=== PATIENT | female | born 1980 | race Caucasian/White ===

== ENCOUNTER 2016-08-27 12:11 | Emergency (ER) | payer OTHER ==
--- NOTE | 2016-08-27 12:38 | EDM.PDOC ---
ED HPI Trauma - General Chief Complaint: Lower Extremity Injury/Pain Stated Complaint: RT ANKLE HURTS Time Seen by Provider: 08/27/16 12:21 Source: Reports: Patient History Limitations: Reports: No limitations - History of Present Illness INITIAL COMMENTS - FREE TEXT/NARRATIVE: History of present illness: [] Patient stepped off a treadmill wrong yesterday and has right ankle pain. She is ambulatory but with pain she denies any other injuries. Review of systems: As per history of present illness and below otherwise all systems reviewed and negative. Past medical history: As per history of present illness and as reviewed below otherwise noncontributory. Surgical history: As per history of present illness and as reviewed below otherwise noncontributory. Social history: No reported history of drug or alcohol abuse. Family history: As per history of present illness and as reviewed below otherwise noncontributory. Physical exam: General: Well developed, well nourished in NAD HEENT: Atraumatic, normocephalic, pupils reactive, negative for conjunctival pallor or scleral icterus, mucous membranes moist, throat clear, neck supple, nontender, trachea midline. Lungs: Clear to auscultation, breath sounds equal bilaterally, chest nontender. Heart: S1S2, regular, negative for clicks, rubs, or JVD. Abdomen: Soft, nondistended, nontender. Negative for masses or hepatosplenomegaly. Negative for costovertebral tenderness. Pelvis: Stable nontender. Genitourinary: Deferred. Rectal: Deferred. Extremities: Atraumatic, tenderness to palpation over the medial malleolus of the right ankle there is no edema or swelling. negative for cords or calf pain. Neurovascular unremarkable. Neuro: Awake, alert, oriented. Cranial nerves II through XII unremarkable. Cerebellum unremarkable. Motor and sensory unremarkable throughout. Exam nonfocal. Diagnostics: [] X-ray negative for fracture Therapeutics: [] Impression: [] Ankle sprain Plan: [] Josué wrap ice elevation followup PMD Definitive disposition and diagnosis as appropriate pending reevaluation and review of above. Allergies/ADRs: Allergies aspirin Adverse Reaction (Verified 08/27/16 13:14) Nausea and Vomiting Home Medications: Ambulatory Orders . 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 Neurological History: Reports: None Psychiatric History: Reports: None Endocrine/Metabolic History: Reports: None Oncologic (Cancer) History: Reports: None Dermatologic History: Reports: None - Infectious Disease History Infectious Disease History: Reports: Chicken pox - Past Surgical History Head Surgeries/Procedures: Reports: None Female Surgical History: Reports: None Endocrine Surgical History: Reports: None Social & Family History - Family History Family Medical History: Unobtainable - Tobacco Use Smoking Status *Q: Never Smoker Second Hand Smoke Exposure: Yes - Alcohol Use Days Per Week of Alcohol Use: 0 - Recreational Drug Use Recreational Drug Use: No - Living Situation & Occupation Living situation: Reports: (With 3 children) Occupation: employed ([employer]) Review of Systems - Review of Systems Review Of Systems: See Below (See history of present illness) Trauma Exam - Physical Exam Exam: See Below (See history of present illness) Course - Vital Signs Last Recorded V/S: Last Vital Signs Temp 36.8 C 08/27/16 13:15 Pulse 70 08/27/16 13:15 Resp 18 08/27/16 13:15 BP 118/64 08/27/16 13:15 Pulse Ox 99 08/27/16 13:15 - Orders/Labs/Meds Orders: Active Orders 24 hr Category Date Time Status Orthopedic Device Education [RC] Click To Edit Care 08/27/16 13:46 Active Departure - Departure Time of Disposition: 13:47 Disposition: Home, Self-Care 01 Condition: good Clinical Impression: Right ankle sprain Qualifiers: Encounter type: initial encounter Involved ligament of ankle: other ligament Qualified Code(s): S93.491A - Sprain of other ligament of right ankle, initial encounter Forms: ED Department Discharge Additional Instructions: The following information is given to patients seen in the emergency department who are being discharged to home. This information is to outline your options for follow-up care. We provide all patients seen in our emergency department with a follow-up referral. The need for follow-up, as well as the timing and circumstances, are variable depending upon the specifics of your emergency department visit. If you don't have a primary care physician on staff, we will provide you with a referral. We always advise you to contact your personal physician following an emergency department visit to inform them of the circumstance of the visit and for follow-up with them and/or the need for any referrals to a consulting specialist. The emergency department will also refer you to a specialist when appropriate. This referral assures that you have the opportunity for follow-up care with a specialist. All of these measure are taken in an effort to provide you with optimal care, which includes your follow-up. Under all circumstances we always encourage you to contact your private physician who remains a resource for coordinating your care. When calling for follow-up care, please make the office aware that this follow-up is from your recent emergency room visit. If for any reason you are refused follow-up, please contact the [facility] Emergency Department at and asked to speak to the emergency department charge nurse. Ibuprofen, ice, elevate, follow up PMD [facility] [address] [place] [id number] - My Orders Last 24 Hours: My Active Orders 08/27/16 13:46 Orthopedic Device Education [RC] Click To Edit - Assessment/Plan Last 24 Hours: My Active Orders 08/27/16 13:46 Orthopedic Device Education [RC] Click To Edit
[2016-08-27 13:18] VITALS: BP 118/64
--- NOTE | 2016-08-27 13:43 | CR ---
EXAMINATION: Right ankle HISTORY: Pain COMPARISON: Radiographs dated 07/20/2008 TECHNIQUE: 3 views FINDINGS/IMPRESSION: There is no acute osseous abnormality, dislocation, or fracture identified. Bon e mineralization and joint spaces appear normal. No soft tissue swelling or joint effusion.
== END 2016-08-27 13:58 | disposition home or self-care (01) ==
LOC: MW.ED 12:11
DX: S93.491A Sprain of other ligament of right ankle, initial encounter (principal); X58.XXXA Exposure to other specified factors, initial encounter
CPT/HCPCS: 73610-26-RT; 73610-RT; 99282; 99283

== ENCOUNTER 2017-02-23 12:48 | Emergency (ER) | payer BC ==
[2017-02-23] MEDS ORDERED: Ketorolac 60 MG/2 ML SDV IM ONE (13:06)
--- NOTE | 2017-02-23 13:06 | EDM.PDOC ---
ED HPI GENERAL MEDICAL PROBLEM - General Chief Complaint: Back Pain or Injury Stated Complaint: BACK PAIN Time Seen by Provider: 02/23/17 13:01 Source of Information: Reports: Patient History Limitations: Reports: No Limitations - History of Present Illness INITIAL COMMENTS - FREE TEXT/NARRATIVE: HISTORY AND PHYSICAL: []36-year-old female with lower back pain radiating to her upper thigh on the right History of Present Illness: []Patient lifted her child who weighs 45 pounds and instantly had the pain Review of Systems: As per history of present illness and below otherwise all systems reviewed and negative. Past medical history: As per history of present illness and as reviewed below otherwise noncontributory. Surgical history: As per history of present illness and as reviewed below otherwise noncontributory. Social history: No reported history of drug or alcohol abuse. Family history: As per history of present illness and as reviewed below otherwise noncontributory. Physical exam: Alert and oriented female answering in full question shows it is sitting position she is able to raise her right leg chair with some difficulty. Left leg raise is better. HEENT: Atraumatic, normocehpalic, pupils reactive, negative for conjunctival pallor or scleral icterus, mucous membranes moist, throat clear, neck supple, nontender, trachea midline. Lungs: Clear to auscultation, breath sounds equal bilaterally, chest non tender. Heart: S1S2, regular, negative for clicks, rubs, or JVD. Abdomen: Soft, nondistended, nontender. Negative for masses or hepatossplenmegaly. Negative for costovertebral tenderness. Pelvis: Stable nontender. Genitourinary: Deferred. Rectal: Deferred Extremities: Atraumatic, negative for cords or calf pain. Neurovascular unremarkable. Neuro: Awake, alert, oriented. Cranial nerves II through XII unremarkable. Cerebellum unremarkable. Motor and sensory unremarkable throughout. Exam nonfocal. Diagnostics: [] Therapeutics: [Toradol] Impression: [Right-sided low back strain] Plan: []Steroids Muscle relaxant Diclofenac Follow up with your primary care Definitive disposition and diagnosis as appropriate pending reevaluation and review of above. Right Lower Back Pain Score (Numeric/FACES): 7 - Related Data Allergies Allergy/AdvReac Type Severity Reaction Status Date / Time aspirin AdvReac Nausea and Verified 02/23/17 12:59 Vomiting Home Meds: Home Meds Cyclobenzaprine [Flexeril] 10 mg PO TID #21 tablet 02/23/17 [Rx] Diclofenac Sodium [IJD: Diclofenac Sodium] 75 mg PO .TWICE DAILY W MEALS #20 tab.ec 02/23/17 [Rx] Prednisone [IJD: predniSONE] 20 mg PO WITHBREAKFAST #10 tab 02/23/17 [Rx] Past Medical History - Past Health History Medical/Surgical History: Denies Medical/Surgical History HEENT History: Reports: None Cardiovascular History: Reports: None Respiratory History: Reports: Other (See Below) Other Respiratory History: activity induced asthma Gastrointestinal History: Reports: None Genitourinary History: Reports: None 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 Neurological History: Reports: None Psychiatric History: Reports: None Endocrine/Metabolic History: Reports: None Oncologic (Cancer) History: Reports: None Dermatologic History: Reports: None - Infectious Disease History Infectious Disease History: Reports: Chicken Pox - Past Surgical History Head Surgeries/Procedures: Reports: None Female Surgical History: Reports: None Endocrine Surgical History: Reports: None Social & Family History - Family History Family Medical History: Unobtainable - Tobacco Use Smoking Status *Q: Never Smoker Second Hand Smoke Exposure: Yes - Alcohol Use Days Per Week of Alcohol Use: 0 - Recreational Drug Use Recreational Drug Use: No - Living Situation & Occupation Living situation: Reports: Occupation: Employed ED ROS GENERAL - Review of Systems Review Of Systems: ROS reveals no pertinent complaints other than HPI. ED EXAM,LOWER BACK PAIN/INJURY - Physical Exam Exam: See Below (See dictation) Course - Vital Signs Last Recorded V/S: Last Vital Signs Temp 36.6 C 02/23/17 12:55 Pulse 99 02/23/17 12:55 Resp 20 02/23/17 12:55 BP 151/66 H 02/23/17 12:55 Pulse Ox 99 02/23/17 12:55 Departure - Departure Time of Disposition: 13:03 Disposition: Home, Self-Care 01 Condition: Good Clinical Impression: Low back strain Qualifiers: Encounter type: initial encounter Qualified Code(s): S39.012A - Strain of muscle, fascia and tendon of lower back, initial encounter - Discharge Information Prescriptions: Cyclobenzaprine [Flexeril] 10 mg PO TID #21 tablet Diclofenac Sodium [IJD: Diclofenac Sodium] 75 mg PO .TWICE DAILY W MEALS #20 tab.ec Prednisone [IJD: predniSONE] 20 mg PO WITHBREAKFAST #10 tab Instructions: Muscle Strain, [id number] Referrals: PCP,None [Primary Care Provider] - Additional Instructions: The following information is given to patients seen in the emergency department who are being discharged to home. This information is to outline your options for follow-up care. We provide all patients seen in our emergency department with a follow-up referral. The need for follow-up, as well as the timing and circumstances, are variable depending upon the specifics of your emergency department visit. If you don't have a primary care physician on staff, we will provide you with a referral. We always advise you to contact your personal physician following an emergency department visit to inform them of the circumstance of the visit and for follow-up with them and/or the need for any referrals to a consulting specialist. The emergency department will also refer you to a specialist when appropriate. This referral assures that you have the opportunity for followup care with a specialist. All of these measure are taken in an effort to provide you with optimal care, which includes your followup. Under all circumstances we always encourage you to contact your private physician who remains a resource for coordinating your care. When calling for followup care, please make the office aware that this follow-up is from your recent emergency room visit. If for any reason you are refused follow-up, please contact the [facility] emergency department at and asked to speak to the emergency department charge nurse. You have been found to have a low back strain on the right that is radiating down part of your leg. Your vertebrae are not tender to palpation. Prescriptions have been sent to your pharmacy Diclofenac is a pain medication that you take twice daily Prednisone is a steroid to help reduce the inflammation Flexeril is for muscle spasms do not take this while you are working or driving Follow up with your primary care provider in one week Few are not improved by that time he may be requested to have x-rays or further imaging Follow-up after that time with physical therapy may be beneficial
[2017-02-23 13:38] VITALS: BP 113/74
== END 2017-02-23 13:30 | disposition home or self-care (01) ==
LOC: MW.ED 12:48
DX: S39.012A Strain of muscle, fascia and tendon of lower back, initial encounter (principal); Z88.6 Allergy status to analgesic agent; Z79.899 Other long term (current) drug therapy; X50.0XXA Overexertion from strenuous movement or load, initial encounter
CPT/HCPCS: 96372; 99283; J1885

== ENCOUNTER 2017-03-04 19:59 | Emergency (ER) | payer BC, OTHER ==
[2017-03-04] MEDS ORDERED: Sodium Chloride 0.9% 1,000 ML IV ONE (20:04)
[2017-03-04] MEDS ORDERED: LORazepam 2 MG/ML MDV IVPUSH ONE ×2 (20:04→20:40)
[2017-03-04] MEDS ORDERED: Ketorolac 30 MG/ML SDV IVPUSH ONE (20:04)
--- NOTE | 2017-03-04 20:13 | EDM.PDOC ---
ED HPI GENERAL MEDICAL PROBLEM - General Chief Complaint: Chest Pain Stated Complaint: UNKNOWN Time Seen by Provider: 03/04/17 20:06 Source of Information: Reports: Patient, EMS History Limitations: Reports: No Limitations - History of Present Illness INITIAL COMMENTS - FREE TEXT/NARRATIVE: History of present illness: [36-year-old female comes in via EMS secondary to chest pain. EMS indicated on- site the patient appeared to be having an anxiety attack she was hyperventilating in indicating she couldn't breathe.] Review of systems: As per history of present illness and below otherwise all systems reviewed and negative. Past medical history: As per history of present illness and as reviewed below otherwise noncontributory. Surgical history: As per history of present illness and as reviewed below otherwise noncontributory. Social history: No reported history of drug or alcohol abuse. Family history: As per history of present illness and as reviewed below otherwise noncontributory. Physical exam: HEENT: Atraumatic, normocephalic, pupils reactive, negative for conjunctival pallor or scleral icterus, mucous membranes moist, throat clear, neck supple, nontender, trachea midline. Lungs: Clear to auscultation, breath sounds equal bilaterally, chest nontender. Heart: S1S2, regular, negative for clicks, rubs, or JVD. Abdomen: Soft, nondistended, nontender. Negative for masses or hepatosplenomegaly. Negative for costovertebral tenderness. Pelvis: Stable nontender. Genitourinary: Deferred. Rectal: Deferred. Extremities: Atraumatic, negative for cords or calf pain. Neurovascular unremarkable. Neuro: Awake, alert, oriented. Cranial nerves II through XII unremarkable. Cerebellum unremarkable. Motor and sensory unremarkable throughout. Exam nonfocal. After patient received Ativan and significant other was at the bedside and repeated coaching on slowing respirations she became calmer and no longer complained of tingling in her hands and feet or circumoral tingling. Diagnostics: [CBC, CMP, troponin, chest x-ray, EKG] Therapeutics: [2 mg of IV Ativan, 1 L IV fluid normal saline, Toradol, Zofran, potassium 40 mEq by mouth] Impression: [#1 anxiety #2 hyperventilation #3 hypokalemia] Plan: [Follow-up with PCP] Definitive disposition and diagnosis as appropriate pending reevaluation and review of above. Middle Chest Pain Score (Numeric/FACES): 5 - Related Data Allergies Allergy/AdvReac Type Severity Reaction Status Date / Time aspirin AdvReac Nausea and Verified 03/04/17 20:08 Vomiting Home Meds: Home Meds . 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 Neurological History: Reports: None Psychiatric History: Reports: None Endocrine/Metabolic History: Reports: None Oncologic (Cancer) History: Reports: None Dermatologic History: Reports: None - Infectious Disease History Infectious Disease History: Reports: Chicken Pox - Past Surgical History Head Surgeries/Procedures: Reports: None Female Surgical History: Reports: None Endocrine Surgical History: Reports: None Social & Family History - Family History Family Medical History: Unobtainable - Tobacco Use Smoking Status *Q: Never Smoker Second Hand Smoke Exposure: Yes - Caffeine Use Caffeine Use: Reports: Soda - Alcohol Use Days Per Week of Alcohol Use: 0 - Recreational Drug Use Recreational Drug Use: No - Living Situation & Occupation Living situation: Reports: Occupation: Employed ED ROS GENERAL - Review of Systems Review Of Systems: See Below (See history of present illness) ED EXAM, GENERAL - Physical Exam Exam: See Below (See history of present illness) Course - Vital Signs Last Recorded V/S: Last Vital Signs Temp 36.6 C 03/04/17 20:03 Pulse 111 H 03/04/17 20:03 Resp 18 03/04/17 20:03 BP 131/85 03/04/17 20:03 Pulse Ox 100 03/04/17 20:03 - Orders/Labs/Meds Orders: Active Orders 24 hr Category Date Time Status EKG Documentation Completion [RC] STAT Care 03/04/17 20:04 Active Chest 1V Frontal [CR] Stat Exams 03/04/17 20:04 Ordered Labs: Laboratory Tests 03/04/17 03/04/17 03/04/17 Range/Units 20:20 20:20 20:50 WBC 8.56 (4.0-11.0) K/uL RBC 4.37 (4.30-5.90) M/uL Hgb 13.3 (12.0-16.0) g/dL Hct 39.2 (36.0-46.0) % MCV 89.7 (80.0-98.0) fL MCH 30.4 (27.0-32.0) pg MCHC 33.9 (31.0-37.0) g/dL RDW Std Deviation 40.8 (28.0-62.0) fl RDW Coeff of [place] 13 (11.0-15.0) % Plt Count 328 (150-400) K/uL MPV 9.90 (7.40-12.00) fL Neut % (Auto) 61.8 (48.0-80.0) % Lymph % (Auto) 28.0 (16.0-40.0) % [place] % (Auto) 8.4 (0.0-15.0) % Eos % (Auto) 1.3 (0.0-7.0) % Baso % (Auto) 0.5 (0.0-1.5) % Neut # (Auto) 5.3 (1.4-5.7) K/uL Lymph # (Auto) 2.4 (0.6-2.4) K/uL [place] # (Auto) 0.7 (0.0-0.8) K/uL Eos # (Auto) 0.1 (0.0-0.7) K/uL Baso # (Auto) 0.0 (0.0-0.1) K/uL Nucleated RBC % 0.0 /100WBC Nucleated RBCs # 0 K/uL Sodium 139 (136-146) mmol/L Potassium 2.8 L (3.5-5.1) mmol/L Chloride 101 (98-110) mmol/L Carbon Dioxide 24 (21-31) mmol/L BUN 8 (6.0-23.0) mg/dL Creatinine 1.1 (0.6-1.5) mg/dL Est Cr Clr Drug Dosing 59.05 mL/min Estimated GFR (MDRD) 56.5 ml/min Glucose 98 (60-110) mg/dL Calcium 9.1 (8.8-10.8) mg/dL Total Bilirubin 0.4 (0.1-1.5) mg/dL AST 16 (5-40) IU/L ALT 12 (8-54) IU/L Alkaline Phosphatase 61 (40-150) Troponin I < 0.10 (0.0-0.29) NG/ML Total Protein 7.5 (6.0-8.0) g/dL Albumin 4.1 (3.5-5.0) g/dL Globulin 3.4 (2.0-3.5) g/dL Albumin/Globulin Ratio 1.2 L (1.3-2.8) Amylase 39 (10-90) U/L Lipase 46 (7-80) U/L Urine Color Urine Appearance Urine pH (5.0-8.0) Ur Specific [place] (1.001-1.035) Urine Protein (NEGATIVE) mg/dL Urine Glucose (UA) (NEGATIVE) mg/dL Urine Ketones (NEGATIVE) mg/dL Urine Occult Blood (NEGATIVE) Urine Nitrite (NEGATIVE) Urine Bilirubin (NEGATIVE) Urine Urobilinogen (<2.0) EU/dL Ur Leukocyte Esterase (NEGATIVE) Urine RBC (0-2/HPF) Urine WBC (0-5/HPF) Ur Epithelial Cells (NONE-FEW) Urine Bacteria (NEGATIVE) Urine HCG, Qual NEGATIVE (NEGATIVE) 03/04/17 Range/Units 20:50 WBC (4.0-11.0) K/uL RBC (4.30-5.90) M/uL Hgb (12.0-16.0) g/dL Hct (36.0-46.0) % MCV (80.0-98.0) fL MCH (27.0-32.0) pg MCHC (31.0-37.0) g/dL RDW Std Deviation (28.0-62.0) fl RDW Coeff of [place] (11.0-15.0) % Plt Count (150-400) K/uL MPV (7.40-12.00) fL Neut % (Auto) (48.0-80.0) % Lymph % (Auto) (16.0-40.0) % [place] % (Auto) (0.0-15.0) % Eos % (Auto) (0.0-7.0) % Baso % (Auto) (0.0-1.5) % Neut # (Auto) (1.4-5.7) K/uL Lymph # (Auto) (0.6-2.4) K/uL [place] # (Auto) (0.0-0.8) K/uL Eos # (Auto) (0.0-0.7) K/uL Baso # (Auto) (0.0-0.1) K/uL Nucleated RBC % /100WBC Nucleated RBCs # K/uL Sodium (136-146) mmol/L Potassium (3.5-5.1) mmol/L Chloride (98-110) mmol/L Carbon Dioxide (21-31) mmol/L BUN (6.0-23.0) mg/dL Creatinine (0.6-1.5) mg/dL Est Cr Clr Drug Dosing mL/min Estimated GFR (MDRD) ml/min Glucose (60-110) mg/dL Calcium (8.8-10.8) mg/dL Total Bilirubin (0.1-1.5) mg/dL AST (5-40) IU/L ALT (8-54) IU/L Alkaline Phosphatase (40-150) Troponin I (0.0-0.29) NG/ML Total Protein (6.0-8.0) g/dL Albumin (3.5-5.0) g/dL Globulin (2.0-3.5) g/dL Albumin/Globulin Ratio (1.3-2.8) Amylase (10-90) U/L Lipase (7-80) U/L Urine Color YELLOW Urine Appearance CLEAR Urine pH 7.0 (5.0-8.0) Ur Specific [place] 1.010 (1.001-1.035) Urine Protein NEGATIVE (NEGATIVE) mg/dL Urine Glucose (UA) NEGATIVE (NEGATIVE) mg/dL Urine Ketones NEGATIVE (NEGATIVE) mg/dL Urine Occult Blood MODERATE (NEGATIVE) Urine Nitrite NEGATIVE (NEGATIVE) Urine Bilirubin NEGATIVE (NEGATIVE) Urine Urobilinogen 0.2 (<2.0) EU/dL Ur Leukocyte Esterase NEGATIVE (NEGATIVE) Urine RBC 0-2 (0-2/HPF) Urine WBC 0-1 (0-5/HPF) Ur Epithelial Cells RARE (NONE-FEW) Urine Bacteria FEW (NEGATIVE) Urine HCG, Qual (NEGATIVE) Meds: Medications Discontinued Medications Generic Name Dose Route Start Last Admin Trade Name Freq PRN Reason Stop Dose Admin Sodium Chloride 1,000 mls @ 999 mls/hr 03/04/17 20:04 03/04/17 20:22 Normal Saline IV 03/04/17 21:04 999 mls/hr .Bolus ONE Administration Ketorolac Tromethamine 30 mg 03/04/17 20:04 03/04/17 20:21 Toradol IVPUSH 03/04/17 20:05 30 mg ONETIME ONE Administration Lorazepam 2 mg 03/04/17 20:04 03/04/17 20:22 Ativan IVPUSH 03/04/17 20:05 2 mg ONETIME ONE Administration Lorazepam 2 mg 03/04/17 20:40 03/04/17 21:09 Ativan IVPUSH 03/04/17 20:41 2 mg ONETIME ONE Administration Potassium Chloride 40 meq 03/04/17 21:12 03/04/17 21:31 Potassium Chloride PO 03/04/17 21:13 Not Given ONETIME ONE Potassium Chloride Confirm 03/04/17 21:24 03/04/17 21:31 Klor-Con M20 Administered 03/04/17 21:25 40 meq Dose Administration 40 meq .ROUTE .STK-MED ONE Departure - Departure Time of Disposition: 22:04 Disposition: Home, Self-Care 01 Condition: Good Clinical Impression: Atypical chest pain, Anxiety, Hypokalemia - Discharge Information Instructions: Nonspecific Chest Pain, [id number] Forms: ED Department Discharge Additional Instructions: The following information is given to patients seen in the emergency department who are being discharged to home. This information is to outline your options for follow-up care. We provide all patients seen in our emergency department with a follow-up referral. The need for follow-up, as well as the timing and circumstances, are variable depending upon the specifics of your emergency department visit. If you don't have a primary care physician on staff, we will provide you with a referral. We always advise you to contact your personal physician following an emergency department visit to inform them of the circumstance of the visit and for follow-up with them and/or the need for any referrals to a consulting specialist. The emergency department will also refer you to a specialist when appropriate. This referral assures that you have the opportunity for follow-up care with a specialist. All of these measure are taken in an effort to provide you with optimal care, which includes your follow-up. Under all circumstances we always encourage you to contact your private physician who remains a resource for coordinating your care. When calling for follow-up care, please make the office aware that this follow-up is from your recent emergency room visit. If for any reason you are refused follow-up, please contact the [facility] Emergency Department at and asked to speak to the emergency department charge nurse. Increase your potassium intake as discussed Decrease you're excessive water intake if you continue to be thirsty you may switch her to a slight drink like Gatorade Follow-up with PCP 1-2 days Return to ED as needed as discussed - My Orders Last 24 Hours: My Active Orders 03/04/17 20:04 EKG Documentation Completion [RC] STAT Chest 1V Frontal [CR] Stat - Assessment/Plan Last 24 Hours: My Active Orders 03/04/17 20:04 EKG Documentation Completion [RC] STAT Chest 1V Frontal [CR] Stat
[2017-03-04 20:50] LABS: CHLORIDE,CL 101 mmol/L (98-110); SODIUM,NA 139 mmol/L (136-146)
[2017-03-04] MEDS ORDERED: Potassium Chloride 10% 20 MEQ/15 ML Soln 30 ML UD Cup PO ONE (21:12)
[2017-03-04] MEDS ORDERED: Potassium Chloride 20 MEQ Tab.ER ONE (21:24)
[2017-03-05 02:23] VITALS: BP 118/60
--- NOTE | 2017-03-06 18:37 | CR ---
EXAM DATE: 03/04/17 PATIENT'S AGE: 36 Patient: FARIHA SNOWDEN Facility: [place], [place] Site . Site : 1980 Study: XRay Chest [id number] 9:45:06 PM Ordering Physician: Doctor Owusu Final Report: Indication: Tachycardia, shortness of breath Technique: Chest 1 view Comparison: None Findings/Impression: Cardiovascular and mediastinum: Heart size and vasculature are normal in caliber and appearance. Mediastinum is within normal limits. Lungs and pleural space: Lungs are clear. No sign of infiltrate or mass. No sign of pleural effusion. No pneumothorax. Bones and soft tissues: No significant findings. Dictated by Nicole Nicole MD @ Mar 04 2017 9:51PM (Electronic Signature) Report Signed by Proxy. SILVANO
== END 2017-03-04 22:17 | disposition home or self-care (01) ==
LOC: MW.ED 19:59
DX: E87.6 Hypokalemia (principal); F41.9 Anxiety disorder, unspecified; R06.4 Hyperventilation; R07.89 Other chest pain; Z88.6 Allergy status to analgesic agent
CPT/HCPCS: 36415; 71010; 80053; 81001; 81025; 82150; 83690; 84484; 85025; 93005; 96361; 96374; 96375; 96376; 99285; A9270; J1885; J2060; J7040; 99283

== ENCOUNTER 2017-03-05 15:48 | Emergency (ER) | payer BC, OTHER ==
[2017-03-05] MEDS ORDERED: Albuterol/Ipratropium 3.0-0.5 MG/3 ML Neb Soln NEB ONE (15:57)
--- NOTE | 2017-03-05 16:00 | EDM.PDOC ---
ED HPI GENERAL MEDICAL PROBLEM - General Chief Complaint: Respiratory Problem Stated Complaint: CHEST PAIN Time Seen by Provider: 03/05/17 15:55 - History of Present Illness INITIAL COMMENTS - FREE TEXT/NARRATIVE: HISTORY AND PHYSICAL: History of present illness: Patient 36-year-old female with no significant past medical history presents with concern of shortness of breath over the last 24 hours she states it slightly improved since arrival she equivocates regarding cough there's been no fever chills chest pain or other complaints. Review of systems: As per history of present illness and below otherwise all systems reviewed and negative. Past medical history: As per history of present illness and as reviewed below otherwise noncontributory. Surgical history: As per history of present illness and as reviewed below otherwise noncontributory. Social history: No reported history of drug or alcohol abuse. Family history: As per history of present illness and as reviewed below otherwise noncontributory. Physical exam: HEENT: Atraumatic, normocephalic, pupils reactive, negative for conjunctival pallor or scleral icterus, mucous membranes moist, throat clear, neck supple, nontender, trachea midline. Lungs: Clear to auscultation, slightly diminished breath sounds equal bilaterally, chest nontender. Heart: S1S2, regular, negative for clicks, rubs, or JVD. Abdomen: Soft, nondistended, nontender. Negative for masses or hepatosplenomegaly. Negative for costovertebral tenderness. Pelvis: Stable nontender. Genitourinary: Deferred. Rectal: Deferred. Extremities: Atraumatic, negative for cords or calf pain. Neurovascular unremarkable. Neuro: Awake, alert, oriented. Cranial nerves II through XII unremarkable. Cerebellum unremarkable. Motor and sensory unremarkable throughout. Exam nonfocal. Diagnostics: Chest x-ray Therapeutics: Albuterol ipratropium nebulizer Impression: #1 dyspnea rule out reactive airway disease Definitive disposition and diagnosis as appropriate pending reevaluation and review of above. - Related Data Allergies Allergy/AdvReac Type Severity Reaction Status Date / Time aspirin AdvReac Nausea and Verified 03/05/17 15:54 Vomiting Home Meds: Home Meds Potassium Chloride 20 meq PO DAILY #5 tab.er.prt 03/04/17 [Rx] Past Medical History - Past Health History Medical/Surgical History: Denies Medical/Surgical History HEENT History: Reports: None Cardiovascular History: Reports: None Other Cardiovascular History: "heart racing" Respiratory History: Reports: Other (See Below) Other Respiratory History: activity induced asthma Gastrointestinal History: Reports: None Genitourinary History: Reports: None 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 Neurological History: Reports: None Psychiatric History: Reports: None Endocrine/Metabolic History: Reports: None Oncologic (Cancer) History: Reports: None Dermatologic History: Reports: None - Infectious Disease History Infectious Disease History: Reports: Chicken Pox - Past Surgical History Head Surgeries/Procedures: Reports: None GI Surgical History: Reports: Cholecystectomy Female Surgical History: Reports: None Endocrine Surgical History: Reports: None Social & Family History - Family History Family Medical History: Noncontributory - Tobacco Use Smoking Status *Q: Never Smoker Second Hand Smoke Exposure: Yes - Caffeine Use Caffeine Use: Reports: Soda Caffeine Use Comment: 2drinks/day - Alcohol Use Days Per Week of Alcohol Use: 0 - Recreational Drug Use Recreational Drug Use: No - Living Situation & Occupation Living situation: Reports: Occupation: Employed ED ROS GENERAL - Review of Systems Review Of Systems: ROS reveals no pertinent complaints other than HPI. ED EXAM, GENERAL - Physical Exam Exam: See Below (The dictation) Course - Vital Signs Last Recorded V/S: Last Vital Signs Temp 36.4 C 03/05/17 15:48 Pulse 108 H 03/05/17 15:48 Resp 18 03/05/17 15:48 BP 140/77 03/05/17 15:48 Pulse Ox 97 03/05/17 15:48 - Orders/Labs/Meds Orders: Active Orders 24 hr Category Date Time Status RT Aerosol Therapy [RC] ASDIRECTED Care 03/05/17 15:57 Active Meds: Medications Discontinued Medications Generic Name Dose Route Start Last Admin Trade Name Freq PRN Reason Stop Dose Admin Albuterol/Ipratropium 3 ml 03/05/17 15:57 Duoneb 3.0-0.5 Mg/3 Ml NEB 03/05/17 15:58 ONETIME ONE Departure - Departure Time of Disposition: 16:00 Disposition: Home, Self-Care 01 Condition: Good Clinical Impression: Dyspnea - Discharge Information Referrals: PCP,None [Primary Care Provider] - Additional Instructions: The following information is given to patients seen in the emergency department who are being discharged to home. This information is to outline your options for follow-up care. We provide all patients seen in our emergency department with a follow-up referral. The need for follow-up, as well as the timing and circumstances, are variable depending upon the specifics of your emergency department visit. If you don't have a primary care physician on staff, we will provide you with a referral. We always advise you to contact your personal physician following an emergency department visit to inform them of the circumstance of the visit and for follow-up with them and/or the need for any referrals to a consulting specialist. The emergency department will also refer you to a specialist when appropriate. This referral assures that you have the opportunity for followup care with a specialist. All of these measure are taken in an effort to provide you with optimal care, which includes your followup. Under all circumstances we always encourage you to contact your private physician who remains a resource for coordinating your care. When calling for followup care, please make the office aware that this follow-up is from your recent emergency room visit. If for any reason you are refused follow-up, please contact the [facility] emergency department at and asked to speak to the emergency department charge nurse. [facility] [address] [place] [id number] Follow-up primary medical doctor 1-2 days albuterol as prescribed return as needed as discussed - My Orders Last 24 Hours: My Active Orders 03/05/17 15:57 RT Aerosol Therapy [RC] ASDIRECTED - Assessment/Plan Last 24 Hours: My Active Orders 03/05/17 15:57 RT Aerosol Therapy [RC] ASDIRECTED
[2017-03-06 09:51] VITALS: BP 134/69
--- NOTE | 2017-03-06 19:41 | CR ---
EXAM DATE: 03/05/17 PATIENT'S AGE: 36 Patient: FARIHA SNOWDEN Facility: [place], [place] Site . Site : 1980 Study: XRay Chest [id number]/21/[id number] 4:11:29 PM Ordering Physician: Doctor Owusu Final Report: HISTORY: Dyspnea. Findings: Single PA view of the chest for reveals normally expanded clear lungs. No pleural effusion or pneumothorax is seen. Cardiac silhouette size is within normal limits. Dictated by Robert Banda MD @ Mar 05 2017 4:24PM (Electronic Signature) Report Signed by Proxy. SILVANO
== END 2017-03-05 17:38 | disposition home or self-care (01) ==
LOC: MW.ED 15:48
DX: R06.00 Dyspnea, unspecified (principal); Z88.6 Allergy status to analgesic agent
CPT/HCPCS: 71010; 71010-26; 94640; 99282; 99283-25

== ENCOUNTER 2017-07-26 11:13 | Emergency (ER) | payer SELFPAY ==
[2017-07-26] MEDS ORDERED: Clindamycin Phosphate 900 MG/6 ML SDV IM ONE (11:34)
[2017-07-26] MEDS ORDERED: Ketorolac 30 MG/ML SDV IVPUSH ONE (11:39)
[2017-07-26] MEDS ORDERED: Sodium Chloride 0.9% 2.5 ML Syringe FLUSH PRN (11:39)
[2017-07-26] MEDS ORDERED: Sodium Chloride 0.9% 10 ML Syringe FLUSH PRN (11:39)
--- NOTE | 2017-07-26 11:41 | EDM.PDOC ---
ED HPI GENERAL MEDICAL PROBLEM - General Chief Complaint: Back Pain or Injury Stated Complaint: BACK PAIN Time Seen by Provider: 07/26/17 11:18 Source of Information: Reports: Patient History Limitations: Reports: No Limitations - History of Present Illness INITIAL COMMENTS - FREE TEXT/NARRATIVE: History of present illness: []Patient has a history of chronic low back pain and hurting worse about a week ago. He denies having any specific trauma or doing anything to aggravate her chronic back pain. She denies any Urinary or fecal incontinence, numbness or tingling or pain with urination. Patient also has had of left lower jaw pain that is now swollen denies any drainage from her gums or facial trauma. Review of systems: As per history of present illness and below otherwise all systems reviewed and negative. Past medical history: As per history of present illness and as reviewed below otherwise noncontributory. Surgical history: As per history of present illness and as reviewed below otherwise noncontributory. Social history: No reported history of drug or alcohol abuse. Family history: As per history of present illness and as reviewed below otherwise noncontributory. Physical exam: General: Well developed, well nourished in NAD HEENT: Atraumatic, right lower jawline mildly swollen with erythema, pupils reactive, negative for conjunctival pallor or scleral icterus, mucous membranes moist, throat clear, neck supple, nontender, trachea midline. Lungs: Clear to auscultation, breath sounds equal bilaterally, chest nontender. Heart: S1S2, regular, negative for clicks, rubs, or JVD. Abdomen: Soft, nondistended, nontender. Negative for masses or hepatosplenomegaly. Negative for costovertebral tenderness. Bilateral lumbar tenderness including vertebral and paraspinal muscles. Pelvis: Stable nontender. Genitourinary: Deferred. Rectal: Deferred. Extremities: Atraumatic, negative for cords or calf pain. Neurovascular unremarkable. Neuro: Awake, alert, oriented. Cranial nerves II through XII unremarkable. Cerebellum unremarkable. Motor and sensory unremarkable throughout. Exam nonfocal. Straight leg negative flexes normal Diagnostics: []UA positive for Therapeutics: []Toradol and clindamycin Impression: []Dental abscess, UTI causing chronic low back pain exacerbation Plan: []tramadol, clindamycin as directed follow-up primary care Definitive disposition and diagnosis as appropriate pending reevaluation and review of above. jaw pain Pain Score (Numeric/FACES): 7 - Related Data Allergies Allergy/AdvReac Type Severity Reaction Status Date / Time aspirin AdvReac Nausea and Verified 07/26/17 11:18 Vomiting Home Meds: Home Meds Clindamycin HCl 300 mg PO TID #30 capsule 07/26/17 [Rx] traMADol HCl [Tramadol HCl] 50 mg PO Q6H PRN #16 tablet 07/26/17 [Rx] Past Medical History - Past Health History Medical/Surgical History: Denies Medical/Surgical History HEENT History: Reports: None Cardiovascular History: Reports: None, Other (See Below) Other Cardiovascular History: "heart racing" Respiratory History: Reports: Other (See Below) Other Respiratory History: activity induced asthma Gastrointestinal History: Reports: None Genitourinary History: Reports: None CARPENTER ROUGH History: Reports: None Musculoskeletal History: Reports: Back Pain, Chronic Neurological History: Reports: None Psychiatric History: Reports: None Endocrine/Metabolic History: Reports: None Hematologic History: Reports: None Immunologic History: Reports: None Oncologic (Cancer) History: Reports: None Dermatologic History: Reports: None - Infectious Disease History Infectious Disease History: Reports: Chicken Pox, Other (See Below) Other Infectious Disease History: childhood - Past Surgical History Head Surgeries/Procedures: Reports: None GI Surgical History: Reports: Cholecystectomy Female Surgical History: Reports: None Endocrine Surgical History: Reports: None Musculoskeletal Surgical History: Reports: None Oncologic Surgical History: Reports: None Dermatological Surgical History: Reports: None Social & Family History - Family History Family Medical History: Noncontributory - Tobacco Use Smoking Status *Q: Never Smoker Second Hand Smoke Exposure: No - Caffeine Use Caffeine Use: Reports: Soda Caffeine Use Comment: 2drinks/day - Alcohol Use Days Per Week of Alcohol Use: 0 - Recreational Drug Use Recreational Drug Use: No - Living Situation & Occupation Living situation: Reports: Occupation: Employed ED ROS GENERAL - Review of Systems Review Of Systems: See Below (See history of present illness) ED EXAM,LOWER BACK PAIN/INJURY - Physical Exam Exam: See Below (See history of present illness) Course - Vital Signs Last Recorded V/S: Last Vital Signs Temp 100.3 F 07/26/17 11:19 Pulse 108 H 07/26/17 14:00 Resp 18 07/26/17 14:00 BP 128/71 07/26/17 14:00 Pulse Ox 97 07/26/17 14:00 - Orders/Labs/Meds Orders: Active Orders 24 hr Category Date Time Status Sodium Chloride 0.9% [Saline Flush] Med 07/26/17 11:39 Active 10 ml FLUSH ASDIRECTED PRN Sodium Chloride 0.9% [Saline Flush] Med 07/26/17 11:39 Active 2.5 ml FLUSH ASDIRECTED PRN Saline Lock Insert [OM.PC] Stat Oth 07/26/17 11:39 Ordered Medication Orders Sodium Chloride (Saline Flush) 10 ml FLUSH ASDIRECTED PRN PRN Reason: Keep Vein Open Sodium Chloride (Saline Flush) 2.5 ml FLUSH ASDIRECTED PRN PRN Reason: Keep Vein Open Labs: Laboratory Tests 07/26/17 Range/Units 13:15 Urine Color YELLOW Urine Appearance CLEAR Urine pH 6.0 (5.0-8.0) Ur Specific [place] 1.015 (1.001-1.035) Urine Protein NEGATIVE (NEGATIVE) mg/dL Urine Glucose (UA) NEGATIVE (NEGATIVE) mg/dL Urine Ketones NEGATIVE (NEGATIVE) mg/dL Urine Occult Blood NEGATIVE (NEGATIVE) Urine Nitrite NEGATIVE (NEGATIVE) Urine Bilirubin NEGATIVE (NEGATIVE) Urine Urobilinogen 0.2 (<2.0) EU/dL Ur Leukocyte Esterase MODERATE (NEGATIVE) Urine RBC 0-2 (0-2/HPF) Urine WBC 5-10 (0-5/HPF) Ur Epithelial Cells FEW (NONE-FEW) Amorphous Sediment LIGHT (NEGATIVE) Urine Bacteria FEW (NEGATIVE) Urine Mucus LIGHT (NONE-MOD) Meds: Medications Generic Name Dose Route Start Last Admin Trade Name Freq PRN Reason Stop Dose Admin Sodium Chloride 10 ml 07/26/17 11:39 Saline Flush FLUSH ASDIRECTED PRN Keep Vein Open Sodium Chloride 2.5 ml 07/26/17 11:39 Saline Flush FLUSH ASDIRECTED PRN Keep Vein Open Discontinued Medications Generic Name Dose Route Start Last Admin Trade Name Freq PRN Reason Stop Dose Admin Clindamycin Phosphate 600 mg/ 54 mls @ 100 mls/hr 07/26/17 11:38 07/26/17 13: 09 Sodium Chloride IV 07/26/17 12:09 Not Given ONETIME ONE Clindamycin Phosphate 600 mg/ 50 mls @ 100 mls/hr 07/26/17 12:15 07/26/17 12: 25 Premix IV 07/26/17 12:44 100 mls/hr ONETIME ONE Administration Ketorolac Tromethamine 30 mg 07/26/17 11:39 07/26/17 12:17 Toradol IVPUSH 07/26/17 11:40 30 mg ONETIME ONE Administration Departure - Departure Time of Disposition: 14:28 Disposition: Home, Self-Care 01 Condition: Good Clinical Impression: Dental abscess, Acute exacerbation of chronic low back pain, UTI (urinary tract infection) - Discharge Information Prescriptions: Clindamycin HCl 300 mg PO TID #30 capsule traMADol HCl [Tramadol HCl] 50 mg PO Q6H PRN #16 tablet PRN Reason: Pain Instructions: Dental Abscess, [id number], Back Pain, Adult Referrals: Jose Min MD [Primary Care Provider] - Forms: ED Department Discharge Additional Instructions: The following information is given to patients seen in the emergency department who are being discharged to home. This information is to outline your options for follow-up care. We provide all patients seen in our emergency department with a follow-up referral. The need for follow-up, as well as the timing and circumstances, are variable depending upon the specifics of your emergency department visit. If you don't have a primary care physician on staff, we will provide you with a referral. We always advise you to contact your personal physician following an emergency department visit to inform them of the circumstance of the visit and for follow-up with them and/or the need for any referrals to a consulting specialist. The emergency department will also refer you to a specialist when appropriate. This referral assures that you have the opportunity for follow-up care with a specialist. All of these measure are taken in an effort to provide you with optimal care, which includes your follow-up. Under all circumstances we always encourage you to contact your private physician who remains a resource for coordinating your care. When calling for follow-up care, please make the office aware that this follow-up is from your recent emergency room visit. If for any reason you are refused follow-up, please contact the [facility] Emergency Department at and asked to speak to the emergency department charge nurse. Clindamycin and tramadol as directed, use ice your back follow-up with primary care request physical therapy. Return if symptoms worsen or change [facility] [address] [place] [id number] - My Orders Last 24 Hours: My Active Orders 07/26/17 11:39 Sodium Chloride 0.9% [Saline Flush] 10 ml FLUSH ASDIRECTED PRN Sodium Chloride 0.9% [Saline Flush] 2.5 ml FLUSH ASDIRECTED PRN Saline Lock Insert [OM.PC] Stat - Assessment/Plan Last 24 Hours: My Active Orders 07/26/17 11:39 Sodium Chloride 0.9% [Saline Flush] 10 ml FLUSH ASDIRECTED PRN Sodium Chloride 0.9% [Saline Flush] 2.5 ml FLUSH ASDIRECTED PRN Saline Lock Insert [OM.PC] Stat
[2017-07-26] MEDS ORDERED: Clindamycin Phosphate in D5W 600 MG in Premix Bag 1 BAG IV ONE ×2 (12:15)
[2017-07-26 14:42] VITALS: BP 125/68
== END 2017-07-26 14:38 | disposition home or self-care (01) ==
LOC: MW.ED 11:13
DX: K04.7 Periapical abscess without sinus (principal); N39.0 Urinary tract infection, site not specified; M54.5 Low back pain; G89.29 Other chronic pain; Z88.6 Allergy status to analgesic agent; Z79.899 Other long term (current) drug therapy
CPT/HCPCS: 81001; 96365; 96375; 99283; J1885

== ENCOUNTER 2018-01-12 14:27 | Emergency (ER) | payer SELFPAY ==
[2018-01-12] MEDS ORDERED: Sodium Chloride 0.9% 2.5 ML Syringe FLUSH PRN (14:31)
[2018-01-12] MEDS ORDERED: Sodium Chloride 0.9% 10 ML Syringe FLUSH PRN (14:31)
--- NOTE | 2018-01-12 14:36 | EDM.PDOC ---
ED HPI GENERAL MEDICAL PROBLEM - General Chief Complaint: General Stated Complaint: DIZZINESS Time Seen by Provider: 01/12/18 14:32 Source of Information: Reports: Patient History Limitations: Reports: No Limitations - History of Present Illness INITIAL COMMENTS - FREE TEXT/NARRATIVE: HISTORY AND PHYSICAL: []37-year-old female presents with 1 week of being dizzy and the back of her head hurting History of Present Illness: []For the last week her head is been hurting in the back and now is having difficulty turning her head from side to side Denies any fever or rashes Review of Systems: As per history of present illness and below otherwise all systems reviewed and negative. Past medical history: As per history of present illness and as reviewed below otherwise noncontributory. Surgical history: As per history of present illness and as reviewed below otherwise noncontributory. Social history: No reported history of drug or alcohol abuse. Family history: As per history of present illness and as reviewed below otherwise noncontributory. Physical exam: Alert and oriented answering questions appropriately in full sentences grimaces with trying to touch her chin to her chest. SHe does complain of some nausea. Vitals have been reviewed by me. HEENT: Atraumatic, normocehpalic, pupils reactive, negative for conjunctival pallor or scleral icterus, mucous membranes moist, throat clear, neck supple, nontender, trachea midline. Lungs: Clear to auscultation, breath sounds equal bilaterally, chest non tender. Heart: S1S2, regular, negative for clicks, rubs, or JVD. Abdomen: Soft, nondistended, nontender. Negative for masses or hepatossplenmegaly. Negative for costovertebral tenderness. Pelvis: Stable nontender. Genitourinary: Deferred. Rectal: Deferred Extremities: Atraumatic, negative for cords or calf pain. Neurovascular unremarkable. Neuro: Awake, alert, oriented. Cranial nerves II through XII unremarkable. Cerebellum unremarkable. Motor and sensory unremarkable throughout. Exam nonfocal. Patient has been moving much better since her admission to the emergency department. She is able to turn her head from side to side and now without much difficulty able to move her chin to touch her chest. Results of the laboratory values and radiology reports were discussed with the patient and her . Diagnostics: []cbc, cmp, trop, amylase, lipase ua urine culture drug screen [place] head CT, cervical spine Therapeutics: []iv fluid Impression: []Migraine versus stress headache Plan: []Discharged home Voltaren gel 1 g to neck 3 times a day when necessary Follow up with your primary care provider Return to the emergency department as directed and discussed Definitive disposition and diagnosis as appropriate pending reevaluation and review of above. Onset: Gradual Duration: Week(s):, Getting Worse Location: Reports: Head Severity: Moderate Improves with: Reports: None Worsens with: Reports: None Lower Neck Pain Score (Numeric/FACES): 7 - Related Data Allergies Allergy/AdvReac Type Severity Reaction Status Date / Time aspirin AdvReac Nausea and Verified 01/12/18 14:34 Vomiting Home Meds: Home Meds Diclofenac Sodium [Voltaren] 1 gm TP TID PRN #1 tube 01/12/18 [Rx] Past Medical History - Past Health History Medical/Surgical History: Denies Medical/Surgical History HEENT History: Reports: None Cardiovascular History: Reports: None, Other (See Below) Other Cardiovascular History: "heart racing" Respiratory History: Reports: Other (See Below) Other Respiratory History: activity induced asthma Gastrointestinal History: Reports: None Genitourinary History: Reports: None SEWER DIGGER History: Reports: None Musculoskeletal History: Reports: Back Pain, Chronic Neurological History: Reports: None Psychiatric History: Reports: None Endocrine/Metabolic History: Reports: None Hematologic History: Reports: None Immunologic History: Reports: None Oncologic (Cancer) History: Reports: None Dermatologic History: Reports: None - Infectious Disease History Infectious Disease History: Reports: Chicken Pox, Other (See Below) Other Infectious Disease History: childhood - Past Surgical History Head Surgeries/Procedures: Reports: None GI Surgical History: Reports: Cholecystectomy Female Surgical History: Reports: None Endocrine Surgical History: Reports: None Musculoskeletal Surgical History: Reports: None Oncologic Surgical History: Reports: None Dermatological Surgical History: Reports: None Social & Family History - Family History Family Medical History: Noncontributory - Caffeine Use Caffeine Use: Reports: Soda Caffeine Use Comment: 2drinks/day - Living Situation & Occupation Living situation: Reports: Occupation: Employed ED ROS GENERAL - Review of Systems Review Of Systems: ROS reveals no pertinent complaints other than HPI. ED EXAM, GENERAL - Physical Exam Exam: See Below (see dictation) EKG INTERPRETATION EKG Date: 01/12/18 Rhythm: NSR Rate (Beats/Min): 75 Comparison: No Change Course - Vital Signs Last Recorded V/S: Last Vital Signs Temp 36.4 C 01/12/18 14:37 Pulse 74 01/12/18 14:37 Resp 15 01/12/18 14:37 BP 139/75 01/12/18 14:37 Pulse Ox 100 01/12/18 14:37 - Orders/Labs/Meds Orders: Active Orders 24 hr Category Date Time Status EKG Documentation Completion [RC] STAT Care 01/12/18 14:31 Inactive EKG Documentation Completion [RC] STAT Care 01/12/18 14:46 Active CULTURE URINE [RM] Stat Lab 01/12/18 14:54 Ordered DRUG SCREEN, URINE [URCHEM] Stat Lab 01/12/18 14:54 Ordered UA W/MICROSCOPIC [URIN] Stat Lab 01/12/18 14:52 Ordered [place] [facility] [REF] Stat Lab 01/12/18 14:50 Received Sodium Chloride 0.9% [Saline Flush] Med 01/12/18 14:31 Active 10 ml FLUSH ASDIRECTED PRN Sodium Chloride 0.9% [Saline Flush] Med 01/12/18 14:31 Active 2.5 ml FLUSH ASDIRECTED PRN Saline Lock Insert [OM.PC] Stat Oth 01/12/18 14:31 Ordered Medication Orders Sodium Chloride (Saline Flush) 10 ml FLUSH ASDIRECTED PRN PRN Reason: Keep Vein Open Last Admin: 01/12/18 14:45 Dose: 10 ml Sodium Chloride (Saline Flush) 2.5 ml FLUSH ASDIRECTED PRN PRN Reason: Keep Vein Open Last Admin: 01/12/18 14:45 Dose: 2.5 ml Labs: Laboratory Tests 01/12/18 01/12/18 01/12/18 Range/Units 14:50 14:50 14:52 WBC 7.23 (4.0-11.0) K/uL RBC 4.35 (4.30-5.90) M/uL Hgb 12.9 (12.0-16.0) g/dL Hct 38.5 (36.0-46.0) % MCV 88.5 (80.0-98.0) fL MCH 29.7 (27.0-32.0) pg MCHC 33.5 (31.0-37.0) g/dL RDW Std Deviation 39.9 (28.0-62.0) fl RDW Coeff of [place] 13 (11.0-15.0) % Plt Count 280 (150-400) K/uL MPV 10.80 (7.40-12.00) fL Neut % (Auto) 59.7 (48.0-80.0) % Lymph % (Auto) 29.9 (16.0-40.0) % [place] % (Auto) 7.7 (0.0-15.0) % Eos % (Auto) 2.1 (0.0-7.0) % Baso % (Auto) 0.6 (0.0-1.5) % Neut # (Auto) 4.3 (1.4-5.7) K/uL Lymph # (Auto) 2.2 (0.6-2.4) K/uL [place] # (Auto) 0.6 (0.0-0.8) K/uL Eos # (Auto) 0.2 (0.0-0.7) K/uL Baso # (Auto) 0.0 (0.0-0.1) K/uL Nucleated RBC % 0.0 /100WBC Nucleated RBCs # 0 K/uL Sodium 137 (136-145) mmol/L Potassium 3.5 (3.5-5.1) mmol/L Chloride 103 (98-107) mmol/L Carbon Dioxide 26.3 (21.0-32.0) mmol/L BUN 10 (7.0-18.0) mg/dL Creatinine 0.9 (0.6-1.0) mg/dL Est Cr Clr Drug Dosing 74.62 mL/min Estimated GFR (MDRD) > 60.0 ml/min Glucose 94 (74-106) mg/dL Calcium 9.1 (8.5-10.1) mg/dL Total Bilirubin 0.4 (0.2-1.0) mg/dL AST 13 L (15-37) IU/L ALT 13 L (14-63) IU/L Alkaline Phosphatase 60 (46-116) U/L Troponin I < 0.050 (0.000-0.056) ng/mL Total Protein 7.5 (6.4-8.2) g/dL Albumin 4.0 (3.4-5.0) g/dL Globulin 3.5 (2.0-3.5) g/dL Albumin/Globulin Ratio 1.1 L (1.3-2.8) Amylase 47 (25-115) U/L Lipase 235 (73-393) U/L Urine Color YELLOW Urine Appearance CLEAR Urine pH 6.0 (5.0-8.0) Ur Specific [place] 1.025 (1.001-1.035) Urine Protein NEGATIVE (NEGATIVE) mg/dL Urine Glucose (UA) NEGATIVE (NEGATIVE) mg/dL Urine Ketones NEGATIVE (NEGATIVE) mg/dL Urine Occult Blood NEGATIVE (NEGATIVE) Urine Nitrite NEGATIVE (NEGATIVE) Urine Bilirubin NEGATIVE (NEGATIVE) Urine Urobilinogen 0.2 (<2.0) EU/dL Ur Leukocyte Esterase MODERATE (NEGATIVE) Urine RBC 1-2 (0-2/HPF) Urine WBC 0-1 (0-5/HPF) Ur Epithelial Cells OCCASIONAL (NONE-FEW) Urine Bacteria RARE (NEGATIVE) Urine Opiates Screen (NEGATIVE) Ur Oxycodone Screen (NEGATIVE) Urine Methadone Screen (NEGATIVE) Ur Barbiturates Screen (NEGATIVE) Ur Phencyclidine Scrn (NEGATIVE) Ur Amphetamine Screen (NEGATIVE) U Methamphetamines Scrn (NEGATIVE) U Benzodiazepines Scrn (NEGATIVE) U Cocaine Metab Screen (NEGATIVE) U Marijuana (THC) Screen (NEGATIVE) 01/12/18 Range/Units 14:54 WBC (4.0-11.0) K/uL RBC (4.30-5.90) M/uL Hgb (12.0-16.0) g/dL Hct (36.0-46.0) % MCV (80.0-98.0) fL MCH (27.0-32.0) pg MCHC (31.0-37.0) g/dL RDW Std Deviation (28.0-62.0) fl RDW Coeff of [place] (11.0-15.0) % Plt Count (150-400) K/uL MPV (7.40-12.00) fL Neut % (Auto) (48.0-80.0) % Lymph % (Auto) (16.0-40.0) % [place] % (Auto) (0.0-15.0) % Eos % (Auto) (0.0-7.0) % Baso % (Auto) (0.0-1.5) % Neut # (Auto) (1.4-5.7) K/uL Lymph # (Auto) (0.6-2.4) K/uL [place] # (Auto) (0.0-0.8) K/uL Eos # (Auto) (0.0-0.7) K/uL Baso # (Auto) (0.0-0.1) K/uL Nucleated RBC % /100WBC Nucleated RBCs # K/uL Sodium (136-145) mmol/L Potassium (3.5-5.1) mmol/L Chloride (98-107) mmol/L Carbon Dioxide (21.0-32.0) mmol/L BUN (7.0-18.0) mg/dL Creatinine (0.6-1.0) mg/dL Est Cr Clr Drug Dosing mL/min Estimated GFR (MDRD) ml/min Glucose (74-106) mg/dL Calcium (8.5-10.1) mg/dL Total Bilirubin (0.2-1.0) mg/dL AST (15-37) IU/L ALT (14-63) IU/L Alkaline Phosphatase (46-116) U/L Troponin I (0.000-0.056) ng/mL Total Protein (6.4-8.2) g/dL Albumin (3.4-5.0) g/dL Globulin (2.0-3.5) g/dL Albumin/Globulin Ratio (1.3-2.8) Amylase (25-115) U/L Lipase (73-393) U/L Urine Color Urine Appearance Urine pH (5.0-8.0) Ur Specific [place] (1.001-1.035) Urine Protein (NEGATIVE) mg/dL Urine Glucose (UA) (NEGATIVE) mg/dL Urine Ketones (NEGATIVE) mg/dL Urine Occult Blood (NEGATIVE) Urine Nitrite (NEGATIVE) Urine Bilirubin (NEGATIVE) Urine Urobilinogen (<2.0) EU/dL Ur Leukocyte Esterase (NEGATIVE) Urine RBC (0-2/HPF) Urine WBC (0-5/HPF) Ur Epithelial Cells (NONE-FEW) Urine Bacteria (NEGATIVE) Urine Opiates Screen NEGATIVE (NEGATIVE) Ur Oxycodone Screen NEGATIVE (NEGATIVE) Urine Methadone Screen NEGATIVE (NEGATIVE) Ur Barbiturates Screen NEGATIVE (NEGATIVE) Ur Phencyclidine Scrn NEGATIVE (NEGATIVE) Ur Amphetamine Screen NEGATIVE (NEGATIVE) U Methamphetamines Scrn NEGATIVE (NEGATIVE) U Benzodiazepines Scrn NEGATIVE (NEGATIVE) U Cocaine Metab Screen NEGATIVE (NEGATIVE) U Marijuana (THC) Screen NEGATIVE (NEGATIVE) Meds: Medications Generic Name Dose Route Start Last Admin Trade Name Freq PRN Reason Stop Dose Admin Sodium Chloride 10 ml 01/12/18 14:31 01/12/18 14:45 Saline Flush FLUSH 10 ml ASDIRECTED PRN Administration Keep Vein Open Sodium Chloride 2.5 ml 01/12/18 14:31 01/12/18 14:45 Saline Flush FLUSH 2.5 ml ASDIRECTED PRN Administration Keep Vein Open Discontinued Medications Generic Name Dose Route Start Last Admin Trade Name Freq PRN Reason Stop Dose Admin Ketorolac Tromethamine 30 mg 01/12/18 15:21 01/12/18 15:40 Toradol IVPUSH 01/12/18 15:22 30 mg ONETIME ONE Administration Departure - Departure Time of Disposition: 15:53 Disposition: Home, Self-Care 01 Condition: Good Clinical Impression: Tension type headache Qualifiers: Headache chronicity pattern: acute headache Intractability: not intractable Qualified Code(s): G44.209 - Tension-type headache, unspecified, not intractable - Discharge Information *PRESCRIPTION DRUG MONITORING PROGRAM REVIEWED*: Not Applicable *COPY OF PRESCRIPTION DRUG MONITORING REPORT IN PATIENT LIA: Not Applicable Prescriptions: Diclofenac Sodium [Voltaren] 1 gm TP TID PRN #1 tube PRN Reason: Pain Referrals: PCP,None [Primary Care Provider] - Forms: ED Department Discharge Additional Instructions: The following information is given to patients seen in the emergency department who are being discharged to home. This information is to outline your options for follow-up care. We provide all patients seen in our emergency department with a follow-up referral. The need for follow-up, as well as the timing and circumstances, are variable depending upon the specifics of your emergency department visit. If you don't have a primary care physician on staff, we will provide you with a referral. We always advise you to contact your personal physician following an emergency department visit to inform them of the circumstance of the visit and for follow-up with them and/or the need for any referrals to a consulting specialist. The emergency department will also refer you to a specialist when appropriate. This referral assures that you have the opportunity for followup care with a specialist. All of these measure are taken in an effort to provide you with optimal care, which includes your followup. Discharged home Voltaren gel 1 g to neck 3 times a day when necessary Follow up with your primary care provider Return to the emergency department as directed and discussed - My Orders Last 24 Hours: My Active Orders 01/12/18 14:31 EKG Documentation Completion [RC] STAT Sodium Chloride 0.9% [Saline Flush] 10 ml FLUSH ASDIRECTED PRN Sodium Chloride 0.9% [Saline Flush] 2.5 ml FLUSH ASDIRECTED PRN Saline Lock Insert [OM.PC] Stat 01/12/18 14:46 EKG Documentation Completion [RC] STAT 01/12/18 14:50 [place] [facility] [REF] Stat 01/12/18 14:52 UA W/MICROSCOPIC [URIN] Stat 01/12/18 14:54 CULTURE URINE [RM] Stat DRUG SCREEN, URINE [URCHEM] Stat - Assessment/Plan Last 24 Hours: My Active Orders 01/12/18 14:31 EKG Documentation Completion [RC] STAT Sodium Chloride 0.9% [Saline Flush] 10 ml FLUSH ASDIRECTED PRN Sodium Chloride 0.9% [Saline Flush] 2.5 ml FLUSH ASDIRECTED PRN Saline Lock Insert [OM.PC] Stat 01/12/18 14:46 EKG Documentation Completion [RC] STAT 01/12/18 14:50 [place] [facility] [REF] Stat 01/12/18 14:52 UA W/MICROSCOPIC [URIN] Stat 01/12/18 14:54 CULTURE URINE [RM] Stat DRUG SCREEN, URINE [URCHEM] Stat
[2018-01-12 15:20] LABS: CHLORIDE,CL 103 mmol/L (98-107); SODIUM,NA 137 mmol/L (136-145)
[2018-01-12] MEDS ORDERED: Ketorolac 30 MG/ML SDV IVPUSH ONE (15:21)
--- NOTE | 2018-01-12 15:34 | CR ---
EXAMINATION: PA chest radiograph. HISTORY: Shortness of breath. Comparison: 03/05/2017 FINDINGS: The trachea is midline. The cardiomediastinal silhouette is within normal limits. No pulmonary infilt rates, effusions or pneumothorax. Osseous structures appear unremarkable. IMPRESSION: No acute cardiopulmonary process.
--- NOTE | 2018-01-12 15:36 | CT ---
EXAMINATION: Non contrast CT head. Coronal and sagittal reformats. HISTORY: Pain FINDINGS: No evidence of intra or extra axial hemorrhage, mass, midline shift, hydrocephalus or edema. No hypoattenuation changes in the major vascular territories to suggest acute infarct. No abnormal intracranial calcifications are detected. No evidence of substantial vascular calcificat ions. Paranasal sinuses and mastoid air cells are well aerated without substantial findings. Orbits and gl obes are symmetric. Pituitary fossa appears unremarkable. Calvarium is intact. No evidence of skull fracture. IMPRESSION: No acute intracranial findings.
--- NOTE | 2018-01-12 15:39 | CT ---
EXAMINATION: CT cervical spine without contrast HISTORY: Pain COMPARISON: None TECHNIQUE: Axial CT images obtained through the cervical spine without contrast. Coronal and sagittal reconstructions obtained. FINDINGS: The cervical spinal alignment is normal. The vertebral body heights and disc spaces appear well-maintained. Bone mineralization is normal. There is no fracture or acute osseous abnormality dem onstrated. Paravertebral soft tissues are normal. Lung apices are clear. IMPRESSION: 1. Grossly unremarkable cervical spine.
[2018-01-12 16:18] VITALS: BP 124/77
== END 2018-01-12 16:18 | disposition home or self-care (01) ==
LOC: MW.ED 14:27
DX: G44.209 Tension-type headache, unspecified, not intractable (principal); Z88.8 Allergy status to other drugs, medicaments and biological substances
CPT/HCPCS: 70450; 71045; 72125; 80053; 80305; 81001; 82150; 83690; 84484; 85025; 87086; 93005; 96374; 99285; J1885

== ENCOUNTER 2018-10-02 18:07 | Emergency (ER) | payer SELFPAY ==
--- NOTE | 2018-10-02 18:28 | EDM.PDOC ---
ED HPI GENERAL MEDICAL PROBLEM - General Chief Complaint: Upper Extremity Injury/Pain Stated Complaint: HURT RT HAND Time Seen by Provider: 10/02/18 18:22 - History of Present Illness INITIAL COMMENTS - FREE TEXT/NARRATIVE: HISTORY AND PHYSICAL: History of present illness: Patient 37-year-old female presents with a concern of right hand injury that occurred when it was slammed in a door prior to arrival she denies other trauma or concern Review of systems: As per history of present illness and below otherwise all systems reviewed and negative. Past medical history: As per history of present illness and as reviewed below otherwise noncontributory. Surgical history: As per history of present illness and as reviewed below otherwise noncontributory. Social history: No reported history of drug or alcohol abuse. Family history: As per history of present illness and as reviewed below otherwise noncontributory. Physical exam: HEENT: Atraumatic, normocephalic, pupils reactive, negative for conjunctival pallor or scleral icterus, mucous membranes moist, throat clear, neck supple, nontender, trachea midline. Lungs: Clear to auscultation, breath sounds equal bilaterally, chest nontender. Heart: S1S2, regular, negative for clicks, rubs, or JVD. Abdomen: Soft, nondistended, nontender. Negative for masses or hepatosplenomegaly. Negative for costovertebral tenderness. Pelvis: Stable nontender. Genitourinary: Deferred. Rectal: Deferred. Extremities: Small swelling and ecchymosis noted over dorsal aspect right hand no gross deformity CMS neurovascular exam is unremarkable Neuro: Awake, alert, oriented. Cranial nerves II through XII unremarkable. Cerebellum unremarkable. Motor and sensory unremarkable throughout. Exam nonfocal. Diagnostics: X-ray right hand Therapeutics: To be determined Impression: #1 right hand injury (blunt force trauma) Definitive disposition and diagnosis as appropriate pending reevaluation and review of above. Right Hand Pain Score (Numeric/FACES): 7 - Related Data Allergies Allergy/AdvReac Type Severity Reaction Status Date / Time aspirin AdvReac Nausea and Verified 03/11/18 09:06 Vomiting Home Meds: Home Meds . [No Known Home Meds] 10/02/18 [History] Past Medical History - Past Health History Medical/Surgical History: Denies Medical/Surgical History HEENT History: Reports: None Cardiovascular History: Reports: None, Other (See Below) Other Cardiovascular History: "heart racing" Respiratory History: Reports: Other (See Below) Other Respiratory History: activity induced asthma Gastrointestinal History: Reports: None Genitourinary History: Reports: None [employer] History: Reports: None Musculoskeletal History: Reports: Back Pain, Chronic Neurological History: Reports: None Psychiatric History: Reports: None Endocrine/Metabolic History: Reports: None Hematologic History: Reports: None Immunologic History: Reports: None Oncologic (Cancer) History: Reports: None Dermatologic History: Reports: None - Infectious Disease History Infectious Disease History: Reports: Chicken Pox, Other (See Below) Other Infectious Disease History: childhood - Past Surgical History Head Surgeries/Procedures: Reports: None GI Surgical History: Reports: Cholecystectomy Female Surgical History: Reports: None Endocrine Surgical History: Reports: None Musculoskeletal Surgical History: Reports: None Oncologic Surgical History: Reports: None Dermatological Surgical History: Reports: None Social & Family History - Family History Family Medical History: Noncontributory - Caffeine Use Caffeine Use: Reports: Soda Caffeine Use Comment: 2drinks/day - Living Situation & Occupation Living situation: Reports: Occupation: Employed Review of Systems - Review of Systems Review Of Systems: ROS reveals no pertinent complaints other than HPI. (See dictation) ED EXAM, GENERAL - Physical Exam Exam: See Below (See dictation) Course - Vital Signs Last Recorded V/S: Last Vital Signs Temp 36.4 C 10/02/18 18:21 Pulse 80 10/02/18 18:21 Resp 16 10/02/18 18:21 BP 121/39 L 10/02/18 18:21 Pulse Ox 100 10/02/18 18:21 - Orders/Labs/Meds Orders: Active Orders 24 hr Category Date Time Status Hand Comp Min 3V Rt [CR] Stat Exams 10/02/18 18:56 Taken Departure - Departure Time of Disposition: 19:26 Disposition: Home, Self-Care 01 Condition: Good Clinical Impression: Hand injury - Discharge Information Referrals: PCP,None [Primary Care Provider] - Forms: ED Department Discharge Additional Instructions: The following information is given to patients seen in the emergency department who are being discharged to home. This information is to outline your options for follow-up care. We provide all patients seen in our emergency department with a follow-up referral. The need for follow-up, as well as the timing and circumstances, are variable depending upon the specifics of your emergency department visit. If you don't have a primary care physician on staff, we will provide you with a referral. We always advise you to contact your personal physician following an emergency department visit to inform them of the circumstance of the visit and for follow-up with them and/or the need for any referrals to a consulting specialist. The emergency department will also refer you to a specialist when appropriate. This referral assures that you have the opportunity for followup care with a specialist. All of these measure are taken in an effort to provide you with optimal care, which includes your followup. Under all circumstances we always encourage you to contact your private physician who remains a resource for coordinating your care. When calling for followup care, please make the office aware that this follow-up is from your recent emergency room visit. If for any reason you are refused follow-up, please contact the [facility] emergency department at and asked to speak to the emergency department charge nurse. Motions as Tylenol as directed ice as directed elevation and immobilization as discussed return as needed as discussed - My Orders Last 24 Hours: My Active Orders 10/02/18 18:56 Hand Comp Min 3V Rt [CR] Stat - Assessment/Plan Last 24 Hours: My Active Orders 10/02/18 18:56 Hand Comp Min 3V Rt [CR] Stat
--- NOTE | 2018-10-02 19:36 | CR ---
INDICATION: Pain after hitting the hand. COMPARISON: None available. TECHNIQUE: The right hand is examined with PA, lateral, and oblique views. FINDINGS: There is no sign of fracture or dislocation. The soft tissues are normal in appearance without sign of radio-opaque foreign body. No significant degenerative disease is seen. IMPRESSION: Normal right hand. Dictated by Graeme East MD @ Oct 02 2018 7:33PM Signed by Dr. Graeme East @ Oct 02 2018 7:35PM
[2018-10-02 19:39] VITALS: BP 123/73
== END 2018-10-02 19:39 | disposition home or self-care (01) ==
LOC: MW.ED 18:07
DX: S60.221A Contusion of right hand, initial encounter (principal); Z88.6 Allergy status to analgesic agent; W23.0XXA Caught, crushed, jammed, or pinched between moving objects, initial encounter
CPT/HCPCS: 73130-26-RT; 73130-RT; 99283; 99283-25

== ENCOUNTER 2019-05-03 08:10 | Emergency (ER) | payer SELFPAY ==
[2019-05-03] MEDS ORDERED: Ketorolac 30 MG/ML SDV IVPUSH ONE (09:08)
[2019-05-03 09:25] LABS: BLOOD UREA NITROGEN,BUN 14 mg/dL (7.0-18.0); CARBON DIOXIDE,CO2 27.6 mmol/L (21.0-32.0); CHLORIDE,CL 105 mmol/L (98-107); GLUCOSE RANDOM 98 mg/dL (74-106); POTASSIUM,K 3.5 mmol/L (3.5-5.1); SODIUM,NA 141 mmol/L (136-145)
[2019-05-03 09:57] VITALS: BP 118/72; PULSE 86
--- NOTE | 2019-05-03 10:24 | EDM.PDOC ---
ED HPI GENERAL MEDICAL PROBLEM - General Chief Complaint: Chest Pain Stated Complaint: CHEST PAIN Time Seen by Provider: 05/03/19 09:30 Source of Information: Reports: Patient History Limitations: Reports: No Limitations - History of Present Illness INITIAL COMMENTS - FREE TEXT/NARRATIVE: Patient is 38-year-old female with no past medical history presenting with a chief complaint of left-sided chest pain. Patient states the pain started last night. Patient has a chest pain does not radiate. Patient states the pain is worse with deep breathing. Patient denies feeling feverish, or short of breath. Reports associated mild cough which is nonproductive. Denies any history of DVT or PE, denies lower extremity swelling, denies recent travel, denies OCP use, denies cardiovascular history. In addition, patient denies using any drugs. Left CHest Pain Score (Numeric/FACES): 8 - Related Data Allergies Allergy/AdvReac Type Severity Reaction Status Date / Time aspirin AdvReac Nausea and Verified 05/03/19 08:12 Vomiting Home Meds: Home Meds . [No Known Home Meds] 10/02/18 [History] Past Medical History - Past Health History Medical/Surgical History: Denies Medical/Surgical History HEENT History: Reports: None Cardiovascular History: Reports: None, Other (See Below) Other Cardiovascular History: "heart racing" Respiratory History: Reports: Other (See Below) Other Respiratory History: activity induced asthma Gastrointestinal History: Reports: None Genitourinary History: Reports: None [employer] History: Reports: None Musculoskeletal History: Reports: Back Pain, Chronic Neurological History: Reports: None Psychiatric History: Reports: None Endocrine/Metabolic History: Reports: None Hematologic History: Reports: None Immunologic History: Reports: None Oncologic (Cancer) History: Reports: None Dermatologic History: Reports: None - Infectious Disease History Infectious Disease History: Reports: None Other Infectious Disease History: childhood - Past Surgical History Head Surgeries/Procedures: Reports: None GI Surgical History: Reports: Cholecystectomy Female Surgical History: Reports: None Endocrine Surgical History: Reports: None Musculoskeletal Surgical History: Reports: None Oncologic Surgical History: Reports: None Dermatological Surgical History: Reports: None Social & Family History - Family History Family Medical History: Noncontributory - Tobacco Use Smoking Status *Q: Never Smoker - Caffeine Use Caffeine Use: Reports: None Caffeine Use Comment: 2drinks/day - Recreational Drug Use Recreational Drug Use: No - Living Situation & Occupation Living situation: Reports: Occupation: Employed ED ROS GENERAL - Review of Systems Review Of Systems: See Below Free Text/Narrative/Comment: In addition to that documented in the HPI above, the additional ROS was obtained : Constitutional: Denies fevers or chills Eyes: Denies vision changes ENMT: Denies sore throat CV: D Per HPI Resp: Denies SOB GI: Denies vomiting or diarrhea : Denies painful urination MSK: Denies recent trauma Skin: Denies new rashes Neuro: Denies new numbness or tingling or weakness Endocrine: Denies unexpected weight loss Heme: Denies bleeding disorders ED EXAM, GENERAL - Physical Exam Exam: See Below Free Text/Narrative:: I have reviewed the triage vital signs Const: Well nourished, well developed, appears stated age Eyes: PERRL, no conjunctival injection HENT: NCAT, Neck supple without meningismus CV: Left chest wall tenderness around ribs 2?3 the costosternal junction RRR, Warm, well-perfused extremities RESP: CTAB, Unlabored respiratory effort GI: soft, non-tender, non-distended, no masses MSK: No gross deformities appreciated Skin: Warm, dry. 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 Sensation and motor function of extremities grossly intact. Psych: Appropriate mood and affect Course - Vital Signs Last Recorded V/S: Last Vital Signs Temp 36.2 C 05/03/19 08:12 Pulse 86 05/03/19 09:56 Resp 17 05/03/19 08:45 BP 118/72 05/03/19 09:56 Pulse Ox 98 05/03/19 09:56 - Orders/Labs/Meds Orders: Active Orders 24 hr Category Date Time Status EKG Documentation Completion [RC] STAT Care 05/03/19 08:08 Active Chest 2V [CR] Stat Exams 05/03/19 09:08 Taken Labs: Laboratory Tests 05/03/19 05/03/19 05/03/19 Range/Units 08:22 08:22 08:22 WBC 6.57 (4.0-11.0) K/uL RBC 4.43 (4.30-5.90) M/uL Hgb 13.3 (12.0-16.0) g/dL Hct 40.0 (36.0-46.0) % MCV 90.3 (80.0-98.0) fL MCH 30.0 (27.0-32.0) pg MCHC 33.3 (31.0-37.0) g/dL RDW Std Deviation 40.1 (28.0-62.0) fl RDW Coeff of Markell 12 (11.0-15.0) % Plt Count 325 (150-400) K/uL MPV 11.50 (7.40-12.00) fL Neut % (Auto) 61.6 (48.0-80.0) % Lymph % (Auto) 27.1 (16.0-40.0) % [place]aca % (Auto) 8.1 (0.0-15.0) % Eos % (Auto) 2.6 (0.0-7.0) % Baso % (Auto) 0.6 (0.0-1.5) % Neut # (Auto) 4.1 (1.4-5.7) K/uL Lymph # (Auto) 1.8 (0.6-2.4) K/uL [place] # (Auto) 0.5 (0.0-0.8) K/uL Eos # (Auto) 0.2 (0.0-0.7) K/uL Baso # (Auto) 0.0 (0.0-0.1) K/uL D-Dimer, Quantitative 0.39 (0.0-0.50) mg/L FEU Sodium 141 (136-145) mmol/L Potassium 3.5 (3.5-5.1) mmol/L Chloride 105 (98-107) mmol/L Carbon Dioxide 27.6 (21.0-32.0) mmol/L BUN 14 (7.0-18.0) mg/dL Creatinine 0.8 (0.6-1.0) mg/dL Est Cr Clr Drug Dosing 86.64 mL/min Estimated GFR (MDRD) > 60.0 ml/min Glucose 98 (74-106) mg/dL Calcium 8.7 (8.5-10.1) mg/dL Meds: Medications Discontinued Medications Generic Name Dose Route Start Last Admin Trade Name Freq PRN Reason Stop Dose Admin Ketorolac Tromethamine 30 mg 05/03/19 09:08 05/03/19 09:17 Toradol IVPUSH 05/03/19 09:09 30 mg ONETIME ONE Administration Departure - Departure Time of Disposition: 10:22 Disposition: Home, Self-Care 01 Condition: Good Clinical Impression: Atypical chest pain Instructions: Nonspecific Chest Pain Referrals: PCP,Unobtain [Primary Care Provider] - Forms: ED Department Discharge Additional Instructions: The following information is given to patients seen in the emergency department who are being discharged to home. This information is to outline your options for follow-up care. We provide all patients seen in our emergency department with a follow-up referral. The need for follow-up, as well as the timing and circumstances, are variable depending upon the specifics of your emergency department visit. If you don't have a primary care physician on staff, we will provide you with a referral. We always advise you to contact your personal physician following an emergency department visit to inform them of the circumstance of the visit and for follow-up with them and/or the need for any referrals to a consulting specialist. The emergency department will also refer you to a specialist when appropriate. This referral assures that you have the opportunity for followup care with a specialist. All of these measure are taken in an effort to provide you with optimal care, which includes your followup. Under all circumstances we always encourage you to contact your private physician who remains a resource for coordinating your care. When calling for followup care, please make the office aware that this follow-up is from your recent emergency room visit. If for any reason you are refused follow-up, please contact the [facility] emergency department at and ask to speak to the emergency department charge nurse. Sepsis Event Note - Evaluation Sepsis Screening Result: No Definite Risk - Focused Exam Vital Signs: Vital Signs Temp Pulse Resp BP Pulse Ox 05/03/19 09:56 86 118/72 98 05/03/19 08:45 84 17 114/71 97 05/03/19 08:12 36.2 C 78 18 126/74 100 Date Exam was Performed: 05/03/19 Time Exam was Performed: : - My Orders Last 24 Hours: My Active Orders 05/03/19 08:08 EKG Documentation Completion [RC] STAT 05/03/19 09:08 Chest 2V [CR] Stat - Assessment/Plan Last 24 Hours: My Active Orders 05/03/19 08:08 EKG Documentation Completion [RC] STAT 05/03/19 09:08 Chest 2V [CR] Stat Assessment:: Patient is a 38-year-old female with a presenting symptom of chest pain. EKG is within normal limits. Chest x-ray is within normal limits. Blood tests are negative for acute changes and demonstrate negative d-dimer. Since patient is low risk for PE there is no further work-up indicated at this time. Patient did not have symptoms consistent with ACS and therefore troponin was not performed. Patient has low risk for cardiac issues and likely diagnosis is led to musculoskeletal chest pain/atypical chest pain. Patient has improvement of symptoms after administration of Toradol and patient will be discharged home with return precautions. Questions addressed and answered. Patient agrees with plan
--- NOTE | 2019-05-03 10:43 | CR ---
INDICATION: left sided chest pain COMPARISON: Chest x-ray dated 11 March 2018. FINDINGS: PA and lateral chest x-rays show a normal cardiac silhouette. The lungs show no focal pulmonary opacities. Sharp pleural margins. No pneumothorax. IMPRESSION: No evidence of acute pulmonary abnormalities. Dictated by Pablo Teixeira MD @ 05/03/2019 10:40:53 AM Dictated by: Pablo Teixeira MD @ 05/03/2019 10:42:21 (Electronically Signed)
== END 2019-05-03 11:58 | disposition home or self-care (01) ==
LOC: MW.ED 08:10
DX: R07.89 Other chest pain (principal); Z88.6 Allergy status to analgesic agent; Z90.49 Acquired absence of other specified parts of digestive tract
CPT/HCPCS: 71046; 80048; 85025; 85379; 93005; 96374; 99285; J1885

== ENCOUNTER 2019-07-06 10:22 | Emergency (ER) | payer SELFPAY ==
--- NOTE | 2019-07-06 11:17 | EDM.PDOC ---
ED HPI GENERAL MEDICAL PROBLEM - General Chief Complaint: Upper Extremity Injury/Pain Stated Complaint: LT SHOULDER PAIN Time Seen by Provider: 07/06/19 11:10 Source of Information: Reports: Patient History Limitations: Reports: No Limitations - History of Present Illness INITIAL COMMENTS - FREE TEXT/NARRATIVE: HISTORY AND PHYSICAL: History of present illness: Patient is a 38-year-old female presents to the ED with complaint of left shoulder pain. She states a few days ago she felt a pop in her shoulder. She reports she has had increasing pain since then. She stats pain is worse with trying to lift her left arm. Patient states she has some tingling in to her left hand. She denies direct injury or trauam to the area. She is taking ibuprofen OTC with relief of symptoms. Review of systems: As per history of present illness and below otherwise all systems reviewed and negative. Past medical history: As per history of present illness and as reviewed below otherwise noncontributory. Surgical history: As per history of present illness and as reviewed below otherwise noncontributory. Social history: No reported history of drug or alcohol abuse. Family history: As per history of present illness and as reviewed below otherwise noncontributory. Physical exam: General: Patient sitting comfortably in no acute distress and nontoxic appearing HEENT: Atraumatic, normocephalic, pupils reactive, negative for conjunctival pallor or scleral icterus, mucous membranes moist, throat clear, neck supple, nontender, trachea midline. No meningeal signs. Lungs: Clear to auscultation, breath sounds equal bilaterally, chest nontender. Heart: S1S2, regular, negative for clicks, rubs, or overt murmur. Abdomen: Soft, nondistended, nontender. Negative for masses or hepatosplenomegaly. Negative for costovertebral tenderness. No rigidity, rebound , guarding. Pelvis: Stable nontender. Genitourinary: Deferred. Rectal: Deferred. Extremities: No obvious swelling or deformity. No cervical vertebral tenderness or step offs to palpation. Pain to palpation along the left supraspinatus and the left AC joint. Atraumatic, negative for cords or calf pain. Neurovascular unremarkable. Neuro: Awake, alert, oriented. Cranial nerves II through XII unremarkable. Cerebellum unremarkable. Motor and sensory unremarkable throughout. Exam nonfocal. Notes: Diagnostics: x-ray left shoulder Therapeutics: Declined toradol Left arm sling Prescriptions: Diclofenac Impression: Left shoulder pain Plan: 1. Ice, elevate, and motrin or tylenol as needed 2. Follow up with orthopedics, please call the number provided to schedule an appointment 3. Return to ED as needed as discussed Definitive disposition and diagnosis as appropriate pending reevaluation and review of above. Left Shoulder Pain Score (Numeric/FACES): 8 - Related Data Allergies Allergy/AdvReac Type Severity Reaction Status Date / Time aspirin AdvReac Nausea and Verified 07/06/19 10:33 Vomiting Home Meds: Home Meds Diclofenac Sodium [Voltaren] 75 mg PO BIDMEALS #20 tab.cr 07/06/19 [Rx] hydrOXYzine HCL [hydrOXYzine] 1 - 2 tab PO Q6H PRN 07/06/19 [History] Past Medical History - Past Health History Medical/Surgical History: Denies Medical/Surgical History HEENT History: Reports: None Cardiovascular History: Reports: None, Other (See Below) Other Cardiovascular History: "heart racing" Respiratory History: Reports: Other (See Below) Other Respiratory History: activity induced asthma Gastrointestinal History: Reports: None Genitourinary History: Reports: None 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 Musculoskeletal History: Reports: Back Pain, Chronic Neurological History: Reports: None Psychiatric History: Reports: None Endocrine/Metabolic History: Reports: None Hematologic History: Reports: None Immunologic History: Reports: None Oncologic (Cancer) History: Reports: None Dermatologic History: Reports: None - Infectious Disease History Infectious Disease History: Reports: Chicken Pox Other Infectious Disease History: childhood - Past Surgical History Head Surgeries/Procedures: Reports: None GI Surgical History: Reports: Cholecystectomy Female Surgical History: Reports: None Endocrine Surgical History: Reports: None Musculoskeletal Surgical History: Reports: None Oncologic Surgical History: Reports: None Dermatological Surgical History: Reports: None Social & Family History - Family History Family Medical History: Noncontributory - Tobacco Use Smoking Status *Q: Never Smoker - Caffeine Use Caffeine Use: Reports: Soda, Tea Caffeine Use Comment: 2drinks/day - Recreational Drug Use Recreational Drug Use: No - Living Situation & Occupation Living situation: Reports: Occupation: Employed Review of Systems - Review of Systems Review Of Systems: Comprehensive ROS is negative, except as noted in HPI. ED EXAM, GENERAL - Physical Exam Exam: See Below (see dictation) Course - Vital Signs Last Recorded V/S: Last Vital Signs Temp 97.6 F 07/06/19 10:33 Pulse 82 07/06/19 11:51 Resp 18 07/06/19 11:51 BP 121/70 07/06/19 11:51 Pulse Ox 97 07/06/19 11:51 - Orders/Labs/Meds Orders: Active Orders 24 hr Category Date Time Status DME for Discharge [COMM] Stat Oth 07/06/19 11:43 Ordered Departure - Departure Time of Disposition: 11:39 Disposition: Home, Self-Care 01 Condition: Good Clinical Impression: Left shoulder pain - Discharge Information Prescriptions: Diclofenac Sodium [Voltaren] 75 mg PO BIDMEALS #20 tab.cr Instructions: Shoulder Pain, [id number] Referrals: PCP,None [Primary Care Provider] - Forms: ED Department Discharge Additional Instructions: The following information is given to patients seen in the emergency department who are being discharged to home. This information is to outline your options for follow-up care. We provide all patients seen in our emergency department with a follow-up referral. The need for follow-up, as well as the timing and circumstances, are variable depending upon the specifics of your emergency department visit. If you don't have a primary care physician on staff, we will provide you with a referral. We always advise you to contact your personal physician following an emergency department visit to inform them of the circumstance of the visit and for follow-up with them and/or the need for any referrals to a consulting specialist. The emergency department will also refer you to a specialist when appropriate. This referral assures that you have the opportunity for follow-up care with a specialist. All of these measure are taken in an effort to provide you with optimal care, which includes your follow-up. Under all circumstances we always encourage you to contact your private physician who remains a resource for coordinating your care. When calling for follow-up care, please make the office aware that this follow-up is from your recent emergency room visit. If for any reason you are refused follow-up, please contact the [facility] Emergency Department at and asked to speak to the emergency department charge nurse. [facility] Professional Building [address] [place] [address], [address] [place] [address] 1. Ice, elevate, and motrin or tylenol as needed 2. Follow up with orthopedics, please call the number provided to schedule an appointment 3. Return to ED as needed as discussed Sepsis Event Note - Evaluation Sepsis Screening Result: No Definite Risk - Focused Exam Vital Signs: Vital Signs Temp Pulse Resp BP Pulse Ox 07/06/19 11:51 82 18 121/70 97 07/06/19 10:33 97.6 F 93 15 129/76 97 Date Exam was Performed: 07/06/19 Time Exam was Performed: 14:42 - My Orders Last 24 Hours: My Active Orders 07/06/19 11:43 DME for Discharge [COMM] Stat - Assessment/Plan Last 24 Hours: My Active Orders 07/06/19 11:43 DME for Discharge [COMM] Stat
--- NOTE | 2019-07-06 11:32 | CR ---
Left shoulder: 3 views left shoulder were obtained. Comparison: No previous shoulder exam. Glenohumeral and acromioclavicular joint appears unremarkable. No fracture, dislocation or other bony abnormality is seen. Impression: 1. No abnormality is appreciated on left shoulder exam. Diagnostic code #1 This report was dictated in Mountain Standard Time
[2019-07-06 11:51] VITALS: BP 121/70; PULSE 82
== END 2019-07-06 11:51 | disposition home or self-care (01) ==
LOC: MW.ED 10:22
DX: M25.512 Pain in left shoulder (principal); Z88.6 Allergy status to analgesic agent
CPT/HCPCS: 73030-26-LT; 73030-LT; 99283-25

== ENCOUNTER 2021-01-17 13:50 | Emergency (ER) | payer SELFPAY ==
--- NOTE | 2021-01-17 14:50 | CR ---
INDICATION: Inversion injury. FINDINGS: Three views of the left ankle show no evidence of acute fracture or dislocation. No other bony or soft tissue abnormalities identified. Dictated by Pablo Teixeira MD @ 01/17/2021 2:49:27 PM (Electronically Signed)
--- NOTE | 2021-01-17 17:36 | EDM.PDOC ---
ED HPI GENERAL MEDICAL PROBLEM - General Chief Complaint: Lower Extremity Injury/Pain Stated Complaint: LEFT ANKLE INJURY Time Seen by Provider: 01/17/21 15:19 Source of Information: Reports: Patient History Limitations: Reports: No Limitations - History of Present Illness INITIAL COMMENTS - FREE TEXT/NARRATIVE: HISTORY AND PHYSICAL: History of present illness: Patient is a 40-year-old female presents emergency room today with concern of left ankle injury that occurred just prior to arrival to the emergency room. Patient states that she was walking on the sidewalk when she stepped funny off the curb and twisted her left ankle. Patient states that she has been able to put some weight on it but does have pain with doing so of her left outer ankle. Patient states that she applied ice to the area and came to the emergency room immediately. Patient denies any head injury or loss of consciousness or any other resuscitative symptoms. Patient denies fever, chills, chest pain, shortness of breath, or cough. Denies headache, neck stiff ness, change in vision, syncope, or near syncope. Denies nausea, vomiting, abdominal pain, diarrhea, constipation, or dysuria. Has not noted any blood in urine or stool. Patient has been eating and drinking appropriately. Review of systems: As per history of present illness and below otherwise all systems reviewed and negative. Past medical history: As per history of present illness and as reviewed below otherwise noncontributory. Surgical history: As per history of present illness and as reviewed below otherwise noncontr ibutory. Social history: See social history for further information Family history: As per history of present illness and as reviewed below otherwise noncontributory. Physical exam: General: Patient is alert, oriented, and in no acute distress. Patient sitting comfortably on exam table. Vitals stable and reviewed by me HEENT: Atraumatic, normocephalic, pupils equal and reactive bilaterally, negative for conjunctival pallor or scleral icterus, mucous membranes moist, TMs normal bilaterally, throat clear, neck supple, nontender, trachea midline. No drooling or trismus noted. No meningeal signs. No hot potato voice noted. Lungs: Clear to auscultation, breath sounds equal bilaterally, chest nontender. Heart: S1S2, regular rate and rhythm without overt murmur Abdomen: Soft, nondistended, nontender. Negative for masses or hepatosplenomegaly. Negative for costovertebral tenderness. Pelvis: Stable nontender. Genitourinary: Deferred. Rectal: Deferred. Skin: Intact, warm, dry. No lesions or rashes noted. Extremities: No obvious deformity of the complete left lower extremity. Dorsalis pedis and posterior tibial pulses are grossly intact left lower extremity with capillary refill less than 2 seconds. Patient does have some mild to moderate tenderness of the lateral malleolus of the left lower extremity without overlying ecchymosis or obvious edema. Patient does have limited range of motion of the left ankle due to pain but does have full range of motion of the remainder left lower extremity. All compartments are soft left lower extremity. Otherwise, atraumatic, negative for cords or calf pain. Neurovascular unremarkable. Neuro: Awake, alert, oriented. Cranial nerves II through XII unremarkable. Cerebellum unremarkable. Motor and sensory unremarkable throughout. Exam non focal. Notes: Signs and symptoms are prompt return to the ED thoroughly discussed with patient. Discussed importance of follow-up with a primary care provider. Voices understanding and is agreeable to plan of care. Denies any further questions or concerns at this time. Diagnostics: Ankle x-ray Therapeutics: Aircast splint, crutches Prescription: None Impression: Ankle injury, left Plan: 1. Rest, ice, elevate the affected extremity. You can apply ice 15 minutes on, 15 minutes off. Use the splint and crutches until follow-up with your primary care provider as discussed. 2. Tylenol and/or Ibuprofen as directed for pain management or discomfort. 3. Follow up with the primary care provider as discussed. Return to the ED as needed and as discussed. Definitive disposition and diagnosis as appropriate pending reevaluation and review of above. - Related Data Allergies Allergy/AdvReac Type Severity Reaction Status Date / Time aspirin AdvReac Nausea and Verified 07/06/19 10:33 Vomiting Home Meds: Home Meds Diclofenac Sodium [Voltaren] 75 mg PO BIDMEALS #20 tab.cr 07/06/19 [Rx] hydrOXYzine HCL [hydrOXYzine] 1 - 2 tab PO Q6H PRN 07/06/19 [History] Past Medical History - Past Health History Medical/Surgical History: Denies Medical/Surgical History HEENT History: Reports: None Cardiovascular History: Reports: None, Other (See Below) Other Cardiovascular History: "heart racing" Respiratory History: Reports: Other (See Below) Other Respiratory History: activity induced asthma Gastrointestinal History: Reports: None Genitourinary History: Reports: None 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 Musculoskeletal History: Reports: Back Pain, Chronic Neurological History: Reports: None Psychiatric History: Reports: None Endocrine/Metabolic History: Reports: None Hematologic History: Reports: None Immunologic History: Reports: None Oncologic (Cancer) History: Reports: None Dermatologic History: Reports: None - Infectious Disease History Infectious Disease History: Reports: Chicken Pox Other Infectious Disease History: childhood - Past Surgical History Head Surgeries/Procedures: Reports: None HEENT Surgical History: Reports: Oral Surgery Other HEENT Surgeries/Procedures: oral surgery Cardiovascular Surgical History: Reports: None Respiratory Surgical History: Reports: None GI Surgical History: Reports: Cholecystectomy Female Surgical History: Reports: None Endocrine Surgical History: Reports: None Neurological Surgical History: Reports: None Musculoskeletal Surgical History: Reports: None Oncologic Surgical History: Reports: None Dermatological Surgical History: Reports: None Social & Family History - Family History Family Medical History: No Pertinent Family History - Tobacco Use Tobacco Use Status *Q: Never Tobacco User - Caffeine Use Caffeine Use: Reports: None Caffeine Use Comment: 2drinks/day - Recreational Drug Use Recreational Drug Use: No - Living Situation & Occupation Living situation: Reports: Occupation: Employed Review of Systems - Review of Systems Review Of Systems: Comprehensive ROS is negative, except as noted in HPI. ED EXAM, GENERAL - Physical Exam Exam: See Below (see dictation) Course - Vital Signs Last Recorded V/S: Last Vital Signs Temp 98.2 F 01/17/21 18:45 Pulse 77 01/17/21 18:45 Resp 18 01/17/21 18:45 BP 112/73 01/17/21 18:45 Pulse Ox 97 01/17/21 18:45 - Orders/Labs/Meds Orders: Active Orders 24 hr Category Date Time Status DME for Discharge [COMM] Stat Oth 01/17/21 17:35 Ordered Departure - Departure Time of Disposition: 17:35 Disposition: Home, Self-Care 01 Clinical Impression: Ankle injury Qualifiers: Encounter type: initial encounter Laterality: left Qualified Code(s): S99.912A - Unspecified injury of left ankle, initial encounter - Discharge Information Referrals: PCP,None [Primary Care Provider] - Forms: ED Department Discharge Additional Instructions: The following information is given to patients seen in the emergency department who are being discharged to home. This information is to outline your options for follow-up care. We provide all patients seen in our emergency department with a follow-up referral. The need for follow-up, as well as the timing and circumstances, are variable depending upon the specifics of your emergency department visit. If you don't have a primary care physician on staff, we will provide you with a referral. We always advise you to contact your personal physician following an emergency department visit to inform them of the circumstance of the visit and for follow-up with them and/or the need for any referrals to a consulting specialist. The emergency department will also refer you to a specialist when appropriate. This referral assures that you have the opportunity for follow-up care with a specialist. All of these measure are taken in an effort to provide you with optimal care, which includes your follow-up. Under all circumstances we always encourage you to contact your private physician who remains a resource for coordinating your care. When calling for follow-up care, please make the office aware that this follow-up is from your recent emergency room visit. If for any reason you are refused follow-up, please contact the [facility] Emergency Department at and asked to speak to the emergency department charge nurse. [facility] [address] [place] [id number] [place] [address] 1. Rest, ice, elevate the affected extremity. You can apply ice 15 minutes on, 15 minutes off. Use the splint and crutches until follow-up with your primary care provider as discussed. 2. Tylenol and/or Ibuprofen as directed for pain management or discomfort. 3. Follow up with the primary care provider as discussed. Return to the ED as needed and as discussed. Sepsis Event Note (ED) - Focused Exam Vital Signs: Vital Signs Temp Pulse Resp BP Pulse Ox 01/17/21 18:45 98.2 F 77 18 112/73 97 01/17/21 17:13 97.8 F 88 18 103/68 99 - My Orders Last 24 Hours: My Active Orders 01/17/21 17:35 DME for Discharge [COMM] Stat - Assessment/Plan Last 24 Hours: My Active Orders 01/17/21 17:35 DME for Discharge [COMM] Stat
[2021-01-17 18:46] VITALS: BP 112/73; PULSE 77
== END 2021-01-17 18:46 | disposition home or self-care (01) ==
LOC: MW.ED 13:50
DX: S99.912A Unspecified injury of left ankle, initial encounter (principal); Z88.8 Allergy status to other drugs, medicaments and biological substances; X50.1XXA Overexertion from prolonged static or awkward postures, initial encounter; Y93.01 Activity, walking, marching and hiking; Y92.480 Sidewalk as the place of occurrence of the external cause
CPT/HCPCS: 73610-26-LT; 73610-LT; 99283-25

== ENCOUNTER 2021-04-07 08:09 | Emergency (ER) | payer SELFPAY ==
[2021-04-07 08:45] VITALS: PULSE 87
--- NOTE | 2021-04-07 08:51 | EDM.PDOC ---
ED HPI GENERAL MEDICAL PROBLEM - General Chief Complaint: Back Pain or Injury Stated Complaint: LOWER BACK PAIN Time Seen by Provider: 04/07/21 08:10 - History of Present Illness INITIAL COMMENTS - FREE TEXT/NARRATIVE: History of present illness: [] Patient lifted her child and felt like she might have pulled her back 2 days ago. For the last 2 days she has gradually increasing crescendo pain is become severe with movement today. Its worse with movement. It does not radiate down her lower extremities. Is not associated with fever chills nausea vomiting or abdominal pain. She is not sexually active for at least several months and has had menstrual period sometime. Review of systems: As per history of present illness and below otherwise all systems reviewed and negative. Past medical history: As per history of present illness and as reviewed below otherwise noncontributory. Surgical history: As per history of present illness and as reviewed below otherwise noncontributory. Social history: No reported history of drug or alcohol abuse. Family history: As per history of present illness and as reviewed below otherwise noncontributory. Physical exam: Constitutional - well developed, well-nourished and in no acute distress HEENT - normocephalic, no evidence of trauma - external nose and mouth normal - no mass in neck and no JVD - mucosae moist EYES - full EOM, PERRL, no icterus - no evidence of inflammation, injection, or drainage Respiratory - no respiratory distress, equal bilateral expansion GI - abdomen soft without distension or organomegaly - - no guard or rebound Musculoskeletal tender low back muscles. Straight leg raise causes mid and ipsilateral back pain without radiculopathy. This is the same on both sides. No gross deformity of long bones or joints - no tenderness, swelling or edema Neurologic -DTR right equal left at the patella. Alert and oriented times four - CN II-XII grossly intact - motor sensory and coordination symmetrically normal Psychiatric - appropriate mood and affect with normal thought content Hematologic - No petechiae or purpura - mucosa appropriate color and sclera not pale - normal nail bed color and refill Integument - no rash or evidence of trauma - normal turgor Diagnostics: [] Therapeutics: [] Impression: [] Plan: [] Definitive disposition and diagnosis as appropriate pending reevaluation and review of above. back Pain Score (Numeric/FACES): 8 - Related Data Allergies Allergy/AdvReac Type Severity Reaction Status Date / Time aspirin AdvReac Nausea and Verified 04/07/21 08:38 Vomiting Home Meds: Home Meds Cyclobenzaprine [Flexeril] 10 mg PO TID PRN #15 tab 04/07/21 [Rx] methylPREDNISolone [Medrol Dose Pack] 4 mg PO DAILY #21 tab 04/07/21 [Rx] Past Medical History - Past Health History Medical/Surgical History: Denies Medical/Surgical History HEENT History: Reports: None Cardiovascular History: Reports: None, Other (See Below) Other Cardiovascular History: "heart racing" Respiratory History: Reports: Other (See Below) Other Respiratory History: activity induced asthma Gastrointestinal History: Reports: None Genitourinary History: Reports: None [employer] History: Reports: None Musculoskeletal History: Reports: Back Pain, Chronic Neurological History: Reports: None Psychiatric History: Reports: None Endocrine/Metabolic History: Reports: None Hematologic History: Reports: None Immunologic History: Reports: None Oncologic (Cancer) History: Reports: None Dermatologic History: Reports: None - Infectious Disease History Infectious Disease History: Reports: Chicken Pox Other Infectious Disease History: childhood - Past Surgical History Head Surgeries/Procedures: Reports: None HEENT Surgical History: Reports: Oral Surgery Other HEENT Surgeries/Procedures: oral surgery Cardiovascular Surgical History: Reports: None Respiratory Surgical History: Reports: None GI Surgical History: Reports: Cholecystectomy Female Surgical History: Reports: None Endocrine Surgical History: Reports: None Neurological Surgical History: Reports: None Musculoskeletal Surgical History: Reports: None Oncologic Surgical History: Reports: None Dermatological Surgical History: Reports: None Social & Family History - Family History Family Medical History: No Pertinent Family History - Caffeine Use Caffeine Use: Reports: None Caffeine Use Comment: 2drinks/day - Living Situation & Occupation Living situation: Reports: Occupation: Employed ED ROS GENERAL - Review of Systems Review Of Systems: Comprehensive ROS is negative, except as noted in HPI. ED EXAM, GENERAL - Physical Exam Exam: See Below Free Text/Narrative:: My physical exam is in the HPI Course - Vital Signs Last Recorded V/S: Last Vital Signs Temp 36.6 C 04/07/21 08:33 Pulse 87 04/07/21 08:55 Resp 18 04/07/21 08:55 BP 116/66 04/07/21 08:55 Pulse Ox 100 04/07/21 08:55 Departure - Departure Time of Disposition: 08:48 Disposition: Home, Self-Care 01 Condition: Good Clinical Impression: Back spasm - Discharge Information Prescriptions: Cyclobenzaprine [Flexeril] 10 mg PO TID PRN #15 tab PRN Reason: Muscle Spasm - Painful methylPREDNISolone [Medrol Dose Pack] 4 mg PO DAILY #21 tab Instructions: Muscle Cramps and Spasms, [id number], Back Injury Prevention, [id number] Referrals: PCP,None [Primary Care Provider] - Forms: ED Department Discharge Additional Instructions: With simple muscle spasm this is unlikely but if You lose control of your bowel or bladder You lose feeling in your buttocks or your lower extremity You lose strength or movement in your lower extremity Need to return immediately and emergently. Your Prescription was sent to [facility]. [facility] - Primary Care [address] [place] [id number] [address] [address] The following information is given to patients seen in the emergency department who are being discharged to home. This information is to outline your options for follow-up care. We provide all patients seen in our emergency department with a follow-up referral. The need for follow-up, as well as the timing and circumstances, are variable depending upon the specifics of your emergency department visit. If you don't have a primary care physician on staff, we will provide you with a referral. We always advise you to contact your personal physician following an emergency department visit to inform them of the circumstance of the visit and for follow-up with them and/or the need for any referrals to a consulting specialist. The emergency department will also refer you to a specialist when appropriate. This referral assures that you have the opportunity for follow-up care with a specialist. All of these measure are taken in an effort to provide you with optimal care, which includes your follow-up. Under all circumstances we always encourage you to contact your private physician who remains a resource for coordinating your care. When calling for follow-up care, please make the office aware that this follow-up is from your recent emergency room visit. If for any reason you are refused follow-up, please contact the [facility] Emergency Department at and asked to speak to the emergency department charge nurse. Sepsis Event Note (ED) - Evaluation Sepsis Screening Result: No Definite Risk - Focused Exam Vital Signs: Vital Signs Temp Pulse Resp BP Pulse Ox 04/07/21 08:55 87 18 116/66 100 04/07/21 08:33 36.6 C 87 18 120/68 100
[2021-04-07 08:56] VITALS: BP 116/66
== END 2021-04-07 08:56 | disposition home or self-care (01) ==
LOC: MW.ED 08:09
DX: M62.830 Muscle spasm of back (principal); Z88.6 Allergy status to analgesic agent; Z79.899 Other long term (current) drug therapy
CPT/HCPCS: 99283

== ENCOUNTER 2021-11-19 08:21 | Emergency (ER) | payer SELFPAY ==
[2021-11-19] MEDS ORDERED: Sodium Chloride 0.9% 10 ML Syringe FLUSH PRN (08:31)
[2021-11-19] MEDS ORDERED: Sodium Chloride 0.9% 2.5 ML Syringe FLUSH PRN (08:31)
[2021-11-19] MEDS ORDERED: Ketorolac 30 MG/ML SDV IVPUSH ONE (08:38)
[2021-11-19 09:53] LABS: CARBON DIOXIDE,CO2 26.8 mmol/L (21.0-32.0); POTASSIUM,K 3.7 mmol/L (3.5-5.1)
[2021-11-19] MEDS ORDERED: Iopamidol 755 MG/ML 500 ML Multipack Bottle IVPUSH STA (11:30)
[2021-11-19 12:07] VITALS: BP 109/66; PULSE 84
== END 2021-11-19 13:00 | disposition home or self-care (01) ==
LOC: MW.ED 08:21
DX: R07.89 Other chest pain (principal); Z88.8 Allergy status to other drugs, medicaments and biological substances; Z20.822 Contact with and (suspected) exposure to COVID-19
CPT/HCPCS: 36415; 71045; 71275; 80053; 84484; 84703; 85025; 85379; 87635; 93005; 96374; 99285; J1885; J3490; Q9967; 93010; 99284; U0002

== ENCOUNTER 2021-11-28 04:38 | Emergency (ER) | payer SELFPAY ==
[2021-11-28] MEDS ORDERED: Metoclopramide 10 MG/2 ML SDV IVPUSH ONE (05:39)
[2021-11-28 06:39] LABS: CARBON DIOXIDE,CO2 31.1 mmol/L (21.0-32.0); POTASSIUM,K 3.6 mmol/L (3.5-5.1)
[2021-11-28] MEDS ORDERED: Sodium Chloride 0.9% 1,000 ML IV ONE (06:40)
[2021-11-28] MEDS ORDERED: Ondansetron 4 MG/2 ML SDV IVPUSH ONE (08:27)
[2021-11-28] MEDS ORDERED: Ketorolac 30 MG/ML SDV IVPUSH ONE (08:27)
[2021-11-28 08:51] VITALS: BP 139/81; PULSE 93
[2021-11-28] MEDS ORDERED: cefTRIAXone 2 GM in Sodium Chloride 0.9% 100 ML IV ONE (08:57)
[2021-11-28] MEDS ORDERED: cefTRIAXone 2 GM in Premix Bag 1 BAG IV ONE (09:11)
[2021-11-28] MEDS ORDERED: VANCOmycin 1.25 GM/250 ML 1.25 GM in Premix Bag 1 BAG IV ONE (09:30)
== END 2021-11-28 10:20 ==
LOC: MW.ED 04:38
DX: G03.9 Meningitis, unspecified (principal); Z88.6 Allergy status to analgesic agent; Z79.899 Other long term (current) drug therapy; Z90.49 Acquired absence of other specified parts of digestive tract; Z20.822 Contact with and (suspected) exposure to COVID-19
CPT/HCPCS: 36415; 70450; 80053; 82945; 84157; 84484; 85025; 87040; 87070; 87205; 87483; 87635; 89050; 93005; 96361; 96365; 96367; 96375; 99285; J0696; J1885; J2405; J2765; J3370; J7030; U0002